=== PATIENT | male | born 1955 | race Caucasian/White ===

== ENCOUNTER 2023-06-01 10:11 | Outpatient (CLI) | payer MEDICARE, SELFPAY ==
--- NOTE | ~2023-06-01 | XR_ITS ---
Right Knee Technique: AP, lateral, and sunrise views were obtained. Clinical History: Osteoarthritis Findings: No fracture or dislocation is seen. Osseous alignment is anatomic. There is mild to moderat e degenerative change of the lateral and patellofemoral compartment. There is minimal degenerative ch elizabeth of the medial compartment.. Soft tissues are unremarkable. No joint effusion is seen. Impression: Tricompartmental osteoarthritis, as detailed above. Reviewed, dictated and finalized at location M. Impression: Tricompartmental osteoarthritis, as detailed above.
== END 2023-06-01 10:12 | disposition home or self-care (01) ==
LOC: ANHIMG 10:15
PROVIDERS: PCP Family Medicine; Visit Provider Orthopaedic Surgery
DX: M17.11 Unilateral primary osteoarthritis, right knee (principal); S83.209A Unspecified tear of unspecified meniscus, current injury, unspecified knee, initial encounter; X58.XXXA Exposure to other specified factors, initial encounter
CPT/HCPCS: 73564

== ENCOUNTER 2025-01-21 11:36 | Outpatient (CLI) | payer MEDICARE, SELFPAY ==
--- OUTSIDE RECORDS SUMMARY | 2025-01-21 11:39 | XMS_ITS | Continuity of Care Document ---
Author Name [facility] Organization [facility] Care Team Providers Care Pocket Builder Name Role Phone [facility] Unavailable Unavailable Problems Combined list of problems from Department of Defense and [facility] Affairs facilities. It does not include entries that were removed or entered in error. Problem Status Onset Date Problem Type Date of Resolution Comments Source AF - Paroxysmal atrial fibrillation Active Condition Feb 24, 2024 Entered By: KAYLEY HARTLEY Comment: status post ARACELI procedure [facility] Anticoagulant control - finding Active Condition [facility] Benign essential hypertension Active Condition [facility] CAD - Coronary Artery Disease ([facility] [id number]) Active Condition Apr 15, 2020 Entered By: KAYLEY HARTLEY Comment: stress test showed abnl perfusion ant ischemia 03/2018 [facility] Chronic deep venous thrombosis of lower extremity Active Condition Dec 13 016 Entered By: KAYLEY HARTLEY Comment: recurrent DVT with PE x 2 [facility] Chronic neuropathy with no known cause or association Active Condition Dec 14, 2015 Entered By: KAYLEY HARTLEY Comment: dx 2005 [facility] COPD - Chronic Obstructive Pulmonary Disease (SCT 60086292) Active Condition [facility] CVA - Cerebrovascular accident Active Condition Dec 15, 2021 Entered By: KAYLEY HARTLEY Comment: affected visionApr 2021 Entered By: KAYLEY HARTLEY Comment: visual field cutFeb 2022 Entered By: KAYLEY HARTLEY Comment: most recent 09/2022 [facility] Daily headache Active Condition [facility] Diabetes mellitus type 2 without retinopathy Active Condition [facility] Falls Active Condition Dec 13 16 Entered By: KAYLEY HARTLEY Comment: recurrent falls /syncope [facility] Gastro-esophageal reflux Active Condition [facility] HLD - Hyperlipidemia Active Condition [facility] Insomnia Active Condition Dec 13 Entered By: KAYLEY HARTLEY Comment: pt works rotating shifts [facility] Knee pain Active Condition Dec 13 Entered By: KAYLEY HARTLEY Comment: 2013 dr Cordero 2017 Entered By: KAYLEY HARTLEY Comment: status post tkr left knee. right knee arthrsocopy. [facility] Low back pain Active Condition Dec Entered By: KAYLEY HARTLEY Comment: status post LESI dr Monsalve [facility] Obesity Active Condition [facility] Parkinsonism Active Condition [facility] Permanent cardiac pacemaker Active Condition [facility] Primary impotence Active Condition [facility] Renal stone Active Condition [facility] Sleep apnea syndrome Active Condition Dec 14, 2015 Entered By: KAYLEY HARTLEY Comment: dx 2013 on cpap [facility] Therapeutic drug effect (SNOMED CT [id number]) Active Condition [facility] Thyroid nodule Active Condition [facility] Diagnosis: ICD-10-CM Z01.818 Encounter for other preprocedural examination Active Diagnosis [facility] Diagnosis: ICD-10-CM Z12.11 Encounter for screening for malignant neoplasm of colon Active Diagnosis [facility] Diagnosis: ICD-10-CM Z51.81 Encounter for therapeutic drug level monitoring Active Diagnosis [facility] Diagnosis: ICD-10-CM R19.5 Other fecal abnormalities Active Diagnosis [facility] Medications Combined list of outpatient medications from Department of Defense and Veterans Affairs facilities.Medications provided include 1) outpatient medications from the last 15 months, and 2) patient-reported medications. Medication Details Route Status Patient Instructions Prescription Expires Prescription Number Last Dispense Date Ordering Provider Order Date Order Qty Source AMITRIPTYLI NE HCL 50MG TAB TAKE TWO TABLETS BY MOUTH AT BEDTIME ORAL ACTIVE 04/18/2025 [id number] KAYLEY HARTLEY 2023 180 [facility] VolpitISIO N AMITRIPTYLI NE HCL 50MG TAB TAKE TWO TABLETS BY MOUTH AT BEDTIME [facility] [id number] [facility] [address] [facility] ASPIRIN 81MG TAB,EC TAKE ONE TABLET BY MOUTH ONCE A DAY ORAL ACTIVE JANES MARION 2023 [facility] ATORVASTATI N CA 80MG TAB TAKE ONE-HALF TABLET BY MOUTH EVERY EVENING FOR HIGH CHOLESTE ROL ORAL ACTIVE 02/06/2025 [id number] [facility] KAYLEY 2023 45 [facility] CALCIUM CITRATE 315MG/VITAM IN D 200UNT TAB TAKE ONE TABLET BY MOUTH EVERY MORNING ORAL ACTIVE KAYLEY HARTLEY 2015 [facility] CARBIDOPA 25MG/LEVODO PA 100MG TAB,SA TAKE ONE TABLET BY MOUTH 6 TIMES A DAY ORAL ACTIVE [facility] KAYLEY 2017 [facility] FLUTICASONE PROPIONATE 50MCG/SPRAY SOLN,NASAL, 16GM INSTILL 1 SPRAY IN EACH NOSTRIL ONCE A DAY NASAL ACTIVE [facility] KAYLEY 2017 [facility] METFORMIN HCL 1000MG TAB TAKE ONE-HALF TABLET BY MOUTH TWICE A DAY WITH MEALS FOR BLOOD SUGAR CONTROL. TAKE WITH FOOD. AVOID ALCOHOL. DISCONTI NUE BEFORE GETTING XRAY DYE. ORAL ACTIVE 11/04/2025 [id number] [facility] KAYLEY 2024 90 [facility] METFORMIN HCL 1000MG TAB TAKE ONE-HALF TABLET BY MOUTH TWICE A DAY WITH MEALS FOR BLOOD SUGAR CONTROL. TAKE WITH FOOD. AVOID ALCOHOL. DISCONTI NUE BEFORE GETTING XRAY DYE. [facility] 02/06/2025 [id number] [facility] 2023 90 [facility] METFORMIN HCL 1000MG TAB TAKE ONE-HALF TABLET BY MOUTH TWICE A DAY WITH MEALS FOR BLOOD SUGAR CONTROL. TAKE WITH FOOD. AVOID ALCOHOL. DISCONTI NUE BEFORE GETTING XRAY DYE. ORAL DISCONT INUED 01/03/2024 [id number] KAYLEY HARTLEY [address] [facility] NYSTATIN [id number] L SUSP,ORAL TAKE 10 ML SWISH and SWALLOW THREE TIMES A DAY FOR INFECTIO N. SHAKE WELL BEFORE USING. ORAL ACTIVE 08/14/2025 [id number] KAYLEY HARTLEY 2023 960 [facility] NYSTATIN [id number] L SUSP,ORAL TAKE 10 ML SWISH and SWALLOW THREE TIMES A DAY FOR INFECTIO N. SHAKE WELL BEFORE USING. ORAL 08/05/2024 [id number] KAYLEY HARTLEY [address] [facility] PANTOPRAZOL E NA 40MG TAB,EC TAKE ONE TABLET BY MOUTH TWICE A DAY TO LOWER STOMACH ACID - TAKE 30 MINUTES BEFORE MEAL(S) ORAL SUSPEND ED 04/20/2025 [id number] KAYLEY HARTLEY 2023 180 [facility] PANTOPRAZOL E NA 40MG TAB,EC TAKE ONE TABLET BY MOUTH TWICE A DAY TO LOWER STOMACH ACID - TAKE 30 MINUTES BEFORE MEAL(S) ORAL DISCONT INUED 04/18/2025 [id number] KAYLEY HARTLEY 2023 180 [facility] PANTOPRAZOL E NA 40MG TAB,EC TAKE ONE TABLET BY MOUTH TWICE A DAY TO LOWER STOMACH ACID - TAKE 30 MINUTES BEFORE MEAL(S) ORAL DISCONT INUED 04/23/2024 [id number] 4 KAYLEY HARTLEY [address] [facility] PILOCARPINE HCL 5MG TAB TAKE ONE TABLET BY MOUTH THREE TIMES A DAY FOR DRY MOUTH ORAL ACTIVE 04/22/2025 [id number] KAYLEY HARTLEY [address] [facility] PILOCARPINE HCL 5MG TAB TAKE ONE TABLET BY MOUTH THREE TIMES A DAY FOR DRY MOUTH ORAL DISCONT INUED 04/23/2024 [id number] [place], ROSA BUTLER [address] [facility] PREGABALIN 150MG CAP,ORAL TAKE 2 CAPSULES BY MOUTH EVERY MORNING FOR 90 DAYS AND TAKE 1 CAPSULE BY MOUTH AT BEDTIME FOR 90 DAYS ORAL ACTIVE KAYLEY HARTLEY [address] [facility] SODIUM CHLORIDE 0.65% (NASAL) SOLN,SPRAY, NASAL USE INTO NOSTRIL( S) EVERY 4 HOURS NEEDED NASAL ACTIVE KAYLEY HARTLEY 2017 [facility] SOTALOL HCL 120MG TAB TAKE ONE TABLET BY MOUTH TWICE A DAY ORAL ACTIVE KAYLEY HARTLEY [address] [facility] TOPIRAMATE 50MG TAB TAKE ONE TABLET BY MOUTH TWICE A DAY ORAL ACTIVE 01/14/2026 [id number] 5 [facility] [address] [facility] TOPIRAMATE 50MG TAB TAKE ONE TABLET BY MOUTH TWICE A DAY ORAL DISCONT INUED 02/06/2025 [id number] [facility] 2023 180 [facility] TOPIRAMATE 50MG TAB TAKE ONE TABLET BY MOUTH TWICE A DAY ORAL DISCONT INUED 01/03/2024 [id number] [facility] [address] [facility] TRAZODONE HCL 100MG TAB TAKE ONE TABLET BY MOUTH AT BEDTIME ORAL ACTIVE KAYLEY HARTLEY [address] [facility] VENLAFAXINE HCL 37.5MG 24HR CAP,SA TAKE TWO CAPSULES BY MOUTH ONCE A DAY FOR MOOD. TAKE WITH FOOD. ORAL ACTIVE 04/18/2025 [id number] SIMKAYLEY COTO 2023 180 [facility] VENLAFAXINE HCL 37.5MG 24HR CAP,SA TAKE TWO CAPSULES BY MOUTH ONCE A DAY FOR MOOD. TAKE WITH FOOD. ORAL DISCONT INUED 2024 [id number] 4 KAYLEY HARTLEY [address] [facility] Allergies, Adverse Reactions, Alerts Combined list of allergies from [facility] and [facility] facilities. It does not include entries that were removed or entered in error. Substance Category Reaction Severity Reaction type Status Date Reported Comments Source CYMBALTA Propensity to adverse reactions to drug (finding) Abdominal pain active 6 [facility] HYDROCODONE Propensity to adverse reactions to drug (finding) Nausea and vomiting active 6 [facility] OXYCODONE Propensity to adverse reactions to drug (finding) Finding of vomiting active 6 [facility] PHENTOLAMINE Propensity to adverse reactions to drug (finding) Elevated blood pressure active 1 [facility] SAVELLA Propensity to adverse reactions to drug (finding) Sweating active 6 [facility] TRAMADOL Propensity to adverse reactions to drug (finding) Tachyarrhyt hmia active 6 [facility] Immunizations Combined list of available immunizations from the Department of [facility] and [facility] facilities. Immunization Series Date Given Administered By Site Reaction Lot Number CVX Code Drug Power Machine Operator Status Comments Source INFLUENZA VACCINE, QUADRIVALENT, ADJUVANTED [address] [facility] ZOSTER RECOMBINANT [address] [facility] INFLUENZA VACCINE, QUADRIVALENT, ADJUVANTED [address] [facility] ZOSTER RECOMBINANT 1 [address] [facility] COVID-19 (PFIZER), MRNA, LNP-S, PF, 30 MCG/0.3 ML DOSE 2 2020 208 complet ed PFR; [id number]; [address] [place] [address] COVID-19 (PFIZER), MRNA, LNP-S, PF, 30 MCG/0.3 ML DOSE 1 2020 208 complet ed PFR; [id number]; [address] [place] [address] INFLUENZA, UNSPECIFIED FORMULATION 2019 88 complet ed [facility] INFLUENZA, HIGH DOSE SEASONAL 3 2018 135 complet ed HISTORICA L INFORMATI ON - FROM OTHER REGISTRY, [facility] INFLUENZA, UNSPECIFIED FORMULATION 2018 88 complet ed [facility] PNEUMOCOCCAL CONJUGATE PCV [address] [facility] INFLUENZA, UNSPECIFIED FORMULATION 2017 88 complet ed [facility] PNEUMOCOCCAL CONJUGATE PCV 13 1 2017 133 complet ed HISTORICA L INFORMATI ON - FROM OTHER REGISTRY, [facility] INFLUENZA, INJECTABLE, QUADRIVALENT, PRESERVATIVE FREE 2 2016 150 complet ed HISTORICA L INFORMATI ON - FROM OTHER REGISTRY, [facility] INFLUENZA, UNSPECIFIED FORMULATION 2016 88 complet ed [facility] PNEUMOCOCCAL POLYSACCHARID E PPV23 [address] [facility] ZOSTER LIVE [address] [facility] INFLUENZA, UNSPECIFIED FORMULATION 2015 88 complet ed [facility] INFLUENZA, UNSPECIFIED FORMULATION 2015 88 complet ed [facility] TDAP [address] [facility] INFLUENZA, UNSPECIFIED FORMULATION 2014 88 complet ed [facility] INFLUENZA, SPLIT (INCL. PURIFIED SURFACE ANTIGEN) 1 2012 15 complet ed HISTORICA L INFORMATI ON - FROM OTHER REGISTRY, [facility] Results Combined list of recent chemistry, hematology and other laboratory results from Department of Defense and Veterans Affairs, ranging from 15 months to all on record, depending upon the facility. Order Name Results Value Reference Range Date Interpretation Specimen Comments Source GLUCOSE, BLOOD-po ct (STL) GLUCOSE [MASS/VOLU ME] IN BLOOD BY AUTOMATED TEST STRIP 138 mg/dL 72 - 99 10/04 H Specimen Type: BLOOD Comment: Test Performed by: [id number] Meter #: [id number] Ordering Provider: Arely HARTLEY Report Released Date/Time: Oct 04, 2023 12:10 PM Reporting Lab: [facility] [address] [facility] [phone] Performing Lab: [id number] [place] [address] OCCULT BLOOD FIT X1 SCREEN HEMOGLOBIN .GASTROINT ESTINAL.LO WER [PRESENCE] IN STOOL BY IMMUNOASSA Y POSITIVE 07/08 [facility] Specimen Type: FECES No comment entered. Ordering Provider: Arely HARTLEY Report Released Date/Time: 2023 03:37 PM Reporting Lab: [address] [address] Performing Lab: [place] [id number] [facility] CBC LEUKOCYTES [#/VOLUME] IN BLOOD BY AUTOMATED COUNT 6.4 10*3/uL 3.6 - 11.2 07/04 Specimen Type: BLOOD No comment entered. Ordering Provider: Arely HARTLEY Report Released Date/Time: 2023 03:11 PM Reporting Lab: [facility] [place] [address] Performing Lab: [facility] [facility] CBC ERYTHROCYT ES [#/VOLUME] IN BLOOD BY AUTOMATED COUNT 4.42 10*6/uL 4.10 - 5.70 07/04 Specimen Type: BLOOD No comment entered. Ordering Provider: Arely HARTLEY Report Released Date/Time: 2023 03:11 PM Reporting Lab: [facility] [place] [address] Performing Lab: [facility] [facility] CBC HEMOGLOBIN [MASS/VOLU ME] IN BLOOD 14.3 g/dL 13.1 - 16.8 07/04 Specimen Type: BLOOD No comment entered. Ordering Provider: Arely HARTLEY Report Released Date/Time: 2023 03:11 PM Reporting Lab: [facility] [place] [address] Performing Lab: [facility] [facility] CBC HEMATOCRIT [VOLUME FRACTION] OF BLOOD 43.1 38.2 - 48.4 07/04 Specimen Type: BLOOD No comment entered. Ordering Provider: Arely HARTLEY Report Released Date/Time: 2023 03:11 PM Reporting Lab: [facility] [place] [address] Performing Lab: [facility] [facility] CBC MCV [ENTITIC VOLUME] BY AUTOMATED COUNT 97.5 fL 80.0 - 100.0 07/04 Specimen Type: BLOOD No comment entered. Ordering Provider: Arely HARTLEY Report Released Date/Time: 2023 03:11 PM Reporting Lab: [facility] [place] [address] Performing Lab: [facility] [facility] CBC MCH [ENTITIC MASS] BY AUTOMATED COUNT 32.4 pg 27.0 - 34.0 07/04 Specimen Type: BLOOD No comment entered. Ordering Provider: Arely HARTLEY Report Released Date/Time: 2023 03:11 PM Reporting Lab: [facility] [place] [address] Performing Lab: [facility] [facility] CBC MCHC [MASS/VOLU ME] BY AUTOMATED COUNT 33.2 g/dL 33.0 - 36.0 07/04 Specimen Type: BLOOD No comment entered. Ordering Provider: Arely HARTLEY Report Released Date/Time: 2023 03:11 PM Reporting Lab: [facility] [place] [address] Performing Lab: [facility] [place] [id number] [facility] CBC PLATELETS [#/VOLUME] IN BLOOD BY AUTOMATED COUNT 186 10*3/uL 150 - 400 07/04 Specimen Type: BLOOD No comment entered. Ordering Provider: Arely HARTLEY Report Released Date/Time: 2023 03:11 PM Reporting Lab: [facility] [place] [address] Performing Lab: [facility] [facility] CBC PLATELET MEAN VOLUME [ENTITIC VOLUME] IN BLOOD BY AUTOMATED COUNT 10.9 fL 7.5 - 11.2 07/04 Specimen Type: BLOOD No comment entered. Ordering Provider: Arely HARTLEY Report Released Date/Time: 2023 03:11 PM Reporting Lab: [facility] [place] [address] Performing Lab: [facility] [facility] CBC ERYTHROCYT E DISTRIBUTI ON WIDTH [RATIO] BY AUTOMATED COUNT 14.2 11.8 - 15.1 07/04 Specimen Type: BLOOD No comment entered. Ordering Provider: Arely HARTLEY Report Released Date/Time: 2023 03:11 PM Reporting Lab: [facility] [place] [address] Performing Lab: [facility] [facility] CBC LYMPHOCYTE S/100 LEUKOCYTES IN BLOOD BY AUTOMATED COUNT 18 07/04 Specimen Type: BLOOD No comment entered. Ordering Provider: Arely HARTLEY Report Released Date/Time: 2023 03:11 PM Reporting Lab: [facility] [place] [id number] Performing Lab: [facility] [facility] CBC MONOCYTES/ 100 LEUKOCYTES IN BLOOD BY AUTOMATED COUNT 10 07/04 Specimen Type: BLOOD No comment entered. Ordering Provider: Arely HARTLEY Report Released Date/Time: 2023 03:11 PM Reporting Lab: [facility] [place] [address] Performing Lab: [facility] [facility] CBC NEUTROPHIL S/100 LEUKOCYTES IN BLOOD BY AUTOMATED COUNT 68 07/04 Specimen Type: BLOOD No comment entered. Ordering Provider: Arely HARTLEY Report Released Date/Time: 2023 03:11 PM Reporting Lab: [facility] [place] [address] Performing Lab: [facility] [facility] CBC EOSINOPHIL S/100 LEUKOCYTES IN BLOOD BY AUTOMATED COUNT 3 07/04 Specimen Type: BLOOD No comment entered. Ordering Provider: Arely HARTLEY Report Released Date/Time: 2023 03:11 PM Reporting Lab: [facility] [place] [address] Performing Lab: [facility] [facility] CBC BASOPHILS/ 100 LEUKOCYTES IN BLOOD BY AUTOMATED COUNT 1 07/04 Specimen Type: BLOOD No comment entered. Ordering Provider: Arely HARTLEY Report Released Date/Time: 2023 03:11 PM Reporting Lab: [facility] [place] [address] Performing Lab: [facility] [facility] CBC LYMPHOCYTE S [#/VOLUME] IN BLOOD BY AUTOMATED COUNT 1.15 10*3/uL 0.77 - 4.50 07/04 Specimen Type: BLOOD No comment entered. Ordering Provider: Arely HARTLEY Report Released Date/Time: 2023 03:11 PM Reporting Lab: [facility] [place] [address] Performing Lab: [facility] [facility] CBC MONOCYTES [#/VOLUME] IN BLOOD BY AUTOMATED COUNT 0.65 10*3/uL 0.19 - 0.80 07/04 Specimen Type: BLOOD No comment entered. Ordering Provider: Arely HARTLEY Report Released Date/Time: 2023 03:11 PM Reporting Lab: [facility] [place] [address] Performing Lab: [facility] CB CBC NEUTROPHIL S [#/VOLUME] IN BLOOD BY AUTOMATED COUNT 4.34 10*3/uL 2.10 - 8.00 07/04 Specimen Type: BLOOD No comment entered. Ordering Provider: Arely HARTLEY Report Released Date/Time: 2023 03:11 PM Reporting Lab: [facility] [place] [address] Performing Lab: [facility] [facility] CBC EOSINOPHIL S [#/VOLUME] IN BLOOD BY AUTOMATED COUNT 0.19 10*3/uL 0.00 - 0.60 07/04 Specimen Type: BLOOD No comment entered. Ordering Provider: Arely HARTLEY Report Released Date/Time: 2023 03:11 PM Reporting Lab: [facility] [place] [address] Performing Lab: [facility] [facility] CBC BASOPHILS [#/VOLUME] IN BLOOD BY AUTOMATED COUNT 0.05 10*3/uL 0.00 - 0.20 07/04 Specimen Type: BLOOD No comment entered. Ordering Provider: Arely HARTLEY Report Released Date/Time: 2023 03:11 PM Reporting Lab: [facility] [phone] Performing Lab: [facility] [phone] [place] [address] [facility] COMPREHE NSIVE METABOLI C PANEL CREATININE [MASS/VOLU ME] IN SERUM OR PLASMA 1.04 mg/dL 0.7 - 1.3 07/04 Specimen Type: PLASMA Comment: No hemolysis noted. Ordering Provider: Arely HARTLEY Report Released Date/Time: 2023 03:11 PM Reporting Lab: [place] [address] Performing Lab: [facility] [address] [place] [address] [phone] [place] [address] [facility]OC COMPREHE NSIVE METABOLI C PANEL UREA NITROGEN [MASS/VOLU ME] IN SERUM OR PLASMA 14.6 mg/dL 9.0 - 25.0 07/04 Specimen Type: PLASMA Comment: No hemolysis noted. Ordering Provider: Arely HARTLEY Report Released Date/Time: 2023 03:11 PM Reporting Lab: [facility] [address] [place] [phone] Performing Lab: [address] [phone] [facility] COMPREHE NSIVE METABOLI C PANEL GLUCOSE [MASS/VOLU ME] IN SERUM OR PLASMA 150 mg/dL 72 - 99 07/04 H Specimen Type: PLASMA Comment: No hemolysis noted. Ordering Provider: Arely HARTLEY Report Released Date/Time: 2023 03:11 PM Reporting Lab: [address] [address] Performing Lab: [facility] [address] [facility] [address] [facility] COMPREHE NSIVE METABOLI C PANEL SODIUM [MOLES/VOL UME] IN SERUM OR PLASMA 142 meq/L 136 - 145 07/04 Specimen Type: PLASMA Comment: No hemolysis noted. Ordering Provider: Arely HARTLEY Report Released Date/Time: 2023 03:11 PM Reporting Lab: [facility] [address] [facility] [address] Performing Lab: [facility] [address] [facility] [address] [facility] COMPREHE NSIVE METABOLI C PANEL POTASSIUM [MOLES/VOL UME] IN SERUM OR PLASMA 4.6 meq/L 3.5 - 5 07/04 Specimen Type: PLASMA Comment: No hemolysis noted. Ordering Provider: Arely HARTLEY Report Released Date/Time: 2023 03:11 PM Reporting Lab: [facility] [address] [place] [phone] Performing Lab: [address] [address] [facility] COMPREHE NSIVE METABOLI C PANEL CHLORIDE [MOLES/VOL UME] IN SERUM OR PLASMA 104 meq/L 98 - 107 07/04 Specimen Type: PLASMA Comment: No hemolysis noted. Ordering Provider: Arely HARTLEY Report Released Date/Time: 2023 03:11 PM Reporting Lab: [facility] [address] [place] [phone] Performing Lab: [facility] [address] [place] [phone] [facility] COMPREHE NSIVE METABOLI C PANEL CARBON DIOXIDE, TOTAL [MOLES/VOL UME] IN SERUM OR PLASMA 33 meq/L 22 - 31 07/04 H Specimen Type: PLASMA Comment: No hemolysis noted. Ordering Provider: Arely HARTLEY Report Released Date/Time: 2023 03:11 PM Reporting Lab: [facility] [address] [facility] [address] Performing Lab: [facility] [address] [facility] [address] [facility] COMPREHE NSIVE METABOLI C PANEL CALCIUM [MASS/VOLU ME] IN SERUM OR PLASMA 9.8 mg/dL 8.4 - 10.4 07/04 Specimen Type: PLASMA Comment: No hemolysis noted. Ordering Provider: Arely HARTLEY Report Released Date/Time: 2023 03:11 PM Reporting Lab: [place] [id number] [facility] [id number] Performing Lab: [address] [address] [facility] COMPREHE NSIVE METABOLI C PANEL PROTEIN [MASS/VOLU ME] IN SERUM OR PLASMA 7.1 g/dL 6 - 8.6 07/04 Specimen Type: PLASMA Comment: No hemolysis noted. Ordering Provider: Arely HARTLEY Report Released Date/Time: 2023 03:11 PM Reporting Lab: [address] [address] Performing Lab: [place] [address] [facility] [phone] [facility] COMPREHE NSIVE METABOLI C PANEL ALBUMIN [MASS/VOLU ME] IN SERUM OR PLASMA 4.3 g/dL 3.4 - 5 07/04 Specimen Type: PLASMA Comment: No hemolysis noted. Ordering Provider: Arely HARTLEY Report Released Date/Time: 2023 03:11 PM Reporting Lab: [facility] [address] [place] [phone] Performing Lab: [address] [phone] [facility] COMPREHE NSIVE METABOLI C PANEL BILIRUBIN. TOTAL [MASS/VOLU ME] IN SERUM OR PLASMA 0.7 mg/dL 0.2 - 1.2 07/04 Specimen Type: PLASMA Comment: No hemolysis noted. Ordering Provider: Arely HARTLEY Report Released Date/Time: 2023 03:11 PM Reporting Lab: [facility] [address] [place] [phone] Performing Lab: [facility] [address] [place] [phone] [facility] COMPREHE NSIVE METABOLI C PANEL ALKALINE PHOSPHATAS E [ENZYMATIC ACTIVITY/V OLUME] IN SERUM OR PLASMA 61 U/L 40 - 150 07/04 Specimen Type: PLASMA Comment: No hemolysis noted. Ordering Provider: Arely HARTLEY Report Released Date/Time: 2023 03:11 PM Reporting Lab: [facility] [address] [place] [phone] Performing Lab: [address] [phone] [facility] COMPREHE NSIVE METABOLI C PANEL ASPARTATE AMINOTRANS FERASE [ENZYMATIC ACTIVITY/V OLUME] IN SERUM OR PLASMA 22 U/L 5 - 34 07/04 Specimen Type: PLASMA Comment: No hemolysis noted. Ordering Provider: Arely HARTLEY Report Released Date/Time: 2023 03:11 PM Reporting Lab: [facility] [address] [place] [phone] Performing Lab: [facility] [address] [place] [phone] [facility] COMPREHE NSIVE METABOLI C PANEL ALANINE AMINOTRANS FERASE [ENZYMATIC ACTIVITY/V OLUME] IN SERUM OR PLASMA 36 U/L 8 - 40 07/04 Specimen Type: PLASMA Comment: No hemolysis noted. Ordering Provider: Arely HARTLEY Report Released Date/Time: 2023 03:11 PM Reporting Lab: [facility] [address] [place] [phone] Performing Lab: [facility] [address] [place] [phone] [facility] COMPREHE NSIVE METABOLI C PANEL GLOMERULAR FILTRATION RATE/1.73 SQ M.PREDICTE D [VOLUME RATE/AREA] IN SERUM, PLASMA OR BLOOD BY CREATININE -BASED FORMULA (CKD-EPI 2020) 77.2 60 07/04 Specimen Type: PLASMA Comment: No hemolysis noted. Ordering Provider: Arely HARTLEY Report Released Date/Time: 2023 03:11 PM Reporting Lab: [place] [address] Performing Lab: [address] [facility] HGA1C HEMOGLOBIN A1C/HEMOGL OBIN.TOTAL IN BLOOD 6.8 4.0 - 6.0 07/04 H Specimen Type: BLOOD No comment entered. Ordering Provider: Arely HARTLEY Report Released Date/Time: 2023 03:11 PM Reporting Lab: [place] [address] Performing Lab: [address] [facility] PROST. SPECIFIC AG.(PB-S TL) PROSTATE SPECIFIC AG [MASS/VOLU ME] IN SERUM OR PLASMA 0.720 ng/mL 0 - 4 07/04 Specimen Type: SERUM Comment: The listed sex of this patient may not be a typical indication for this test. Therefore, reference ranges or interpretiv e criteria listed may not be valid. Clinical correlation suggested. Ordering Provider: Arely HARTLEY Report Released Date/Time: 2023 03:11 PM Reporting Lab: [place] [address] Performing Lab: [address] [facility] TSH (MA-PB-S TL) THYROTROPI N [UNITS/VOL UME] IN SERUM OR PLASMA 2.226 u[IU]/mL 0.47 - 5 07/04 Specimen Type: SERUM Comment: The listed sex of this patient may not be a typical indication for this test. Therefore, reference ra [id number]|2025-01-21 11:40:00|2025-01-21 11:39:00|XMS_ITS|PERRY MONTES DE OCA|External Medical Summaries|[id number]|" Referral Summary Created on: January 21, 2025 Rosa Escalante : 1955 Sex: Male Author Organization [facility] Address [address] [place] [address] Care Team Providers Care Pocket Builder Name Role Phone Tuan Bolden MD Unavailable [phone] Kayley Hartley MD Unavailable [phone] Veronica Swanson MD Unavailable [phone] Lakeisha Agustin MD Unavailable Jesús Mo DMD Unavailable Samuel Moura MD Unavailable [phone] Luh Costa MD Unavailable Carlos Espinal MD Primary Care Provider [phone] Tyra Flores MD PhD Unavailable [phone] Encounters Date Type Department Care Team Description 01/20/2025 10:45 AM CDT Office Visit [facility] Neuro Sleep [address] [facility] 6th [address] [place] [phone] Luda Hilton MD LUCI (obstructive sleep apnea) 12/16/2024 Telephone [facility] Movement Disorders [address] [place] [address] [address] [place] [phone] Eva Arias, RN 12/16/2024 2:00 PM CDT Office Visit [facility] Primary Care at [address] [phone] Carlos Espinal MD Hypertension, unspecified type (Primary Dx); Multiple-type hyperlipidemia; Presence of Amulet left atrial appendage closure device; Type 2 diabetes mellitus without complication, without long-term current use of insulin (HCC); Type 2 diabetes mellitus with diabetic neuropathy, without long-term current use of insulin (HCC); Nasal turbinate hypertrophy; Chronic maxillary sinusitis 12/15/2024 Telephone [facility] Movement Disorders [address] [place] [phone] Eva Arias, MILI 12/01/2024 Results Follow-Up [facility] Convenient Care at [address] [phone] Tammi Leon NP 12/01/2024 11:00 AM CDT Ancillary Procedure [facility] Imaging at [address] [phone] Acute cough; Aspiration into airway, initial encounter 11/30/2024 Results Follow-Up [facility] Convenient Care at [address] [phone] Tammi Leon, DIESEL TRAILER MECHANIC 11/30/2024 2:54 PM CDT - 11/30/2024 11:59 PM CDT Hospital Encounter [address] [address] Acute cough Discharge Disposition: Discharge to home or self care 11/30/2024 2:15 PM CDT Office Visit [facility] Convenient Care at [address] [phone] Tammi Leon NP Acute cough (Primary Dx); Aspiration into airway, initial encounter 11/24/2024 11:00 AM CDT Clinical Support [facility] Movement Disorders [address] [place] [phone] 11/24/2024 9:30 AM CDT Office Visit [facility] Movement Disorders [address] [place] [phone] Lady Kumar NP Parkinson's disease without dyskinesia or fluctuating manifestations (HCC) (Primary Dx); Cognitive change; LUCI (obstructive sleep apnea) 11/18/2024 1:30 PM CDT Office Visit [facility] Primary Care at [address] [phone] Carlos Espinal MD Hospital discharge follow-up (Primary Dx); Atrial fibrillation with RVR (HCC); High risk medications (not anticoagulants) long-term use; Presence of Amulet left atrial appendage closure device; Paresis (HCC); Hypertension associated with diabetes (HCC) 11/12/2024 THELMA IP Outreach [facility] Accountable Care Organization [address] [place] [phone] Kavita Hickman MA 11/09/2024 12:17 PM [employer]LECTION SYSTEM OPERATOR - 11/11/2024 4:39 PM [employer]LL G[employer] COLLECTION SYSTEM OPERATOR Hospital Encounter [address] [address] Shashi Sylvester MD Rudomiotov, Olga, MD Perez Porcel, Jose Daniel, MD Shortness of breath (Primary Dx); Atrial fibrillation, unspecified type (HCC); Weakness Discharge Disposition: Discharge to home, home health skilled care 11/08/2024 5:48 PM [employer] G[employer] COLLECTION SYSTEM OPERATOR - 11/08/2024 7:43 PM [employer]LL G[employer] COLLECTION SYSTEM OPERATOR Emergency [facility] Emergency Department [address] [place] [address] Deyvi Cade MD Chronic atrial fibrillation with RVR (HCC) (Primary Dx) Discharge Disposition: Discharge to home or self care from Last 3 Months Allergies Active Allergy Reactions Criticality Noted Date Comments Codeine Stomach upset Low Duloxetine Other (See comments),Vomiting High Reaction: ARRHYTHMIA, Reaction: abdominal pain, vomiting, , Hydrocodone-Acetaminoph en Nausea & Vomiting Low Milnacipran Nausea & Vomiting Low SAVELLA ABDOMINAL PAIN, extreme sweating, Oxycodone Other (See comments) Low ABDOMINAL PAIN, Phentolamine Unknown Low 03/18/2021 Tramadol Nausea & Vomiting Low Rapid heart beat Medications venlafaxine (EFFEXOR) 37.5 mg tablet Take 1 tablet (37.5 mg total) by mouth 2 (two) times a day Active multivitamin capsule Take 1 capsule by mouth daily Active melatonin 10 mg tablet Take 1 tablet (10 mg total) by mouth nightly Active amitriptyline (ELAVIL) 50 mg tablet Take 2 tablets (100 mg total) by mouth nightly Active metFORMIN (GLUCOPHAGE) 1,000 mg tablet Take 0.5 tablets (500 mg total) by mouth 2 (two) times a day with meals Active pantoprazole DR (PROTONIX) 40 mg EC tablet Take 1 tablet (40 mg total) by mouth 2 (two) times a day Active topiramate (TOPAMAX) 50 mg tablet Take 1 tablet (50 mg total) by mouth 2 (two) times a day Active calcium carbonate-kayleen min D3 1500 mg (600 mg elemental) -200 units per tablet Take 1 tablet by mouth 2 (two) times a day Active cholecalcifero l (VITAMIN D-3) 1,000 unit Take 1 tablet/capsule (1,000 Units total) by mouth daily Active acetaminophen (TYLENOL) 500 mg tablet Take 2 tablets (1,000 mg total) by mouth 3 (three) times a day as needed for pain Do not exceed 3000mg in 24 hours Active pilocarpine (SALAGEN) 5 mg tablet Take 1 tablet (5 mg total) by mouth 3 (three) times a day 04/19/20 23 Active sotaloL (BETAPACE) 120 mg tablet Take 1 tablet (120 mg total) by mouth 2 (two) times a day Active docusate sodium (DOK) 100 mg tablet Take 1 tablet (100 mg total) by mouth 2 (two) times a day Active aspirin 81 mg chewable tablet Take 1 tablet (81 mg total) by mouth daily Active EPINEPHrine 0.3 mg/0.3 mL auto-injection syringe Inject 0.3 mL (0.3 mg total) into the muscle as instructed as needed for anaphylaxis Call 911 after use. 1 each 07/29/20 24 Active atorvastatin (LIPITOR) 40 mg tablet TAKE 1 TABLET BY MOUTH EVERY DAY AT NIGHT 90 tablet 3 09/24/19 25 Active donepeziL (ARICEPT) 5 mg tablet TAKE 1 TABLET BY MOUTH EVERY DAY AT NIGHT 90 tablet 3 09/24/19 25 Active dilTIAZem XR (CARDIZEM CD,DILACOR XR) 180 mg 24 hr capsule Take 1 capsule (180 mg total) by mouth daily 30 capsule 10/11/19 25 Active NYSTATIN ORAL Take 10 mg by mouth 3 (three) times a day Active rizatriptan (MAXALT) 10 mg tabletIndicati ons:Migraine Take 1 tablet (10 mg total) by mouth once as needed for migraine May repeat in 2 hours if unresolved. Do not exceed 30 mg in 24 hours. 9 tablet 1 10/13/19 25 026 Active psyllium 0.52 gram capsule Take 1 capsule (0.52 g total) by mouth daily Active carbidopa-levo dopa (SINEMET) 25-100 mg per tablet 2.5 tablets at 10a, 2.5 tablets at 3pm, and 2.5 tablets at 8p (4-5 hours apart) 12/16/19 25 Active fluticasone propionate (FLONASE) 50 mcg/actuation nasal spray Administer 1 spray into each nostril daily Active sodium chloride (OCEAN) 0.65 % nasal spray Administer 1 spray into each nostril as needed for congestion or rhinitis Active pregabalin (LYRICA) 150 mg capsule TAKE 2 CAPSULES BY MOUTH EVERY MORNING, THEN 1 CAPSULE BY MOUTH EVERY EVENING 270 capsule 1 12/27/19 25 Active mecobalamin (B12 ACTIVE ORAL) Take by mouth Active suvorexant 5 mg tablet Take 5-10 mg by mouth nightly as needed (as needed for insomnia) 60 tablet 5 01/21/20 25 025 Active pregabalin (LYRICA) 150 mg capsule TAKE 2 CAPSULES BY MOUTH EVERY MORNING, THEN 1 CAPSULE BY MOUTH EVERY EVENING 270 capsule 2 06/27/20 24 025 Discontinued Hospital, Clinic, or Other Facility Administered Medication Ordered Dose Route Frequency Start Date End Date Status onabotulinumtoxin A (BOTOX) injection 300 UnitsIndications:Cer vical dystonia 300 Units IM Once for Clinic-Administer ed Medication 01/28/2025 01/27/2026 Active Active Problems Problem Noted Date Diagnosed Date Leukocytosis 10/10/2024 Tricuspid regurgitation 10/10/2024 Aortic regurgitation 10/10/2024 Atrial fibrillation with RVR 10/09/2024 Cervical dystonia 06/04/2024 Assessment & Plan (10/15/2024 2:39 PM [employer] G[employer] COLLECTION SYSTEM OPERATOR): Rosa Escalante is a 69 y.o. 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 He is an appropriate candidate for botulinum injections. The risks (including but not limited to: bruising, hematoma, weakness, dysphagia, and infection, benefits, alternatives to chemodenervation were explained. A signed consent was obtained. The consenting adult understands that all general neurological issues are to be managed by the referring neurologist or physician. Plan: Get insurance approval for 300 units at next visit Botulinum A 200 U injected into the following muscles using a 1 ml dilution: 20U Levator Scapulae (left) 20U Scalenus Medius (left) 10U Splenius Capitis (left) 20U Levator Scapulae (right) 10U Splenius Capitis (right) 60U Trapezius (left) 60U Trapezius (right) Assessment & Plan (06/10/2024 8:02 AM CDT): Rosa Escalante is a 69 y.o. 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 He is an appropriate candidate for botulinum injections. The risks (including but not limited to: bruising, hematoma, weakness, dysphagia, and infection, benefits, alternatives to chemodenervation were explained. A signed consent was obtained. The consenting adult understands that all general neurological issues are to be managed by the referring neurologist or physician. Plan: Get insurance approval for 300 units at next visit - Botulinum A 200 U injected into the following muscles using a 1 ml dilution: 20U Levator Scapulae (left) 20U Scalenus Medius (left) 10U Splenius Capitis (left) 20U Levator Scapulae (right) 10U Splenius Capitis (right) 60U Trapezius (left) 60U Trapezius (right) Pharyngoesophageal dysphagia 05/09/2024 Assessment & Plan (05/09/2024 10:01 AM CDT): Modified barium swallow study Other thrombophilia 03/24/2024 Chronic maxillary sinusitis 02/27/2024 Assessment & Plan (05/15/2024 3:33 PM CDT): 05/01/24; PROCEDURE PERFORMED: Endoscopic bilateral Maxillary Antrostomy with tissue removal Stealth Image guidance utilized Avoid nose picking May blow nose gently Follow up as needed Take morning medications with water prior to testing, hold off on Metformin Continue nasal saline 3-4 times daily for at least one more month and then at least 2-3 times daily Assessment & Plan (05/09/2024 10:02 AM CDT): Avoid nose blowing for one more week Follow up as scheduled next Sunday Start sinus rinse twice daily Assessment & Plan (02/28/2024 8:38 AM CDT): Nasal saline spray (Simply saline, Little Remedies, Gautier, Phelps) 2 second sprays or 2 squeezes into each nostril while looking down over the sink, do not need to sniff in. Flonase 2 sprays into each nostril while looking down over the sink, do not sniff in or blow nose after use for at least 30 minutes up to twice daily Please avoid any nasal trauma CT sinus Centralized Scheduling: Endoscopic Left Maxillary Antrostomy with Fungal ball removal Stealth image guidance Risks and complications include anesthesia, bleeding, infection, injury to surrounding structures including brain with csf leak, eyes with vision changes, nasal mucosa, atrophic rhinitis, benign versus malignant pathology, no guarantee that sense of smell will return, need for further surgery. Personal interpretation of CT Head: Left maxillary sinus opacification, fungal debris noted, uncinate process expansion from sinus contents, septum midline, all other sinuses were clear Chronic rhinitis 02/27/2024 Assessment & Plan (02/28/2024 8:27 AM CDT): Nasal saline spray (Simply saline, Little Remedies, Gautier, Phelps) 2 second sprays or 2 squeezes into each nostril while looking down over the sink, do not need to sniff in. Flonase 2 sprays into each nostril while looking down over the sink, do not sniff in or blow nose after use for at least 30 minutes up to twice daily Please avoid any nasal trauma Presence of Amulet left atrial appendage closure device 12/04/2023 Platelets decreased 11/14/2023 Mitral regurgitation 11/02/2023 Atrial fibrillation 10/30/2023 Alteration in anticoagulation 07/16/2023 Chronic idiopathic ataxic neuropathy 07/16/2023 Overview (07/16/2023): Dec 14, 2015 Entered By: KAYLEY HARTLEY Comment: dx 2006 Arteriosclerosis of coronary artery 07/16/2023 Overview (07/16/2023): Apr 15, 2020 Entered By: KAYLEY HARTLEY Comment: stress test showed abnl perfusion ant ischemia 03/2018 Chronic deep vein thrombosis (DVT) of lower extr emity 07/16/2023 Overview (07/16/2023): Dec 14, 2015 Entered By: KAYLEY HARTLEY Comment: recurrent DVT with PE x 2 Chronic obstructive pulmonary disease 07/16/2023 Assessment & Plan (10/15/2024 8:54 PM [employer]LL G[employer] COLLECTION SYSTEM OPERATOR): Uses oxygen at night. 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 Discussed relevant follow up testing and specialty follow-up needed. Referrals placed as needed. Will have patient follow up as as scheduled with Primary Care Physician: Carlos Espinal Assessment & Plan (09/22/2022 2:13 PM [employer]LL G[employer] COLLECTION SYSTEM OPERATOR): I have reviewed the hospital record, medications, and relevant testing from Rosa Escalante's recent admission. Complications and discharge plan have been noted, reviewed. Post-discharge testing has been ordered. Awaiting [employer] CRM DEVELOPER evaluation Will want PT/OT in all likelihood as well, probably to wrap in with PD therapy MRI planned, will need to get from [facility] Also want to get liver MRI to assess mass in liver found during hospitalization Plan on overnight oximetry; in the past he has declined CPAP due to intolerance Liver mass 09/15/2022 Cerebrovascular accident (CVA), unspecified mech anism 09/13/2022 Assessment & Plan (09/13/2022 7:00 PM L[employer]LL GAS COLLECTION SYSTEM OPERATOR): Patient with multiple risk factors including AFib, obesity, prior stroke, and diabetes,who presents with new onset left-sided facial droop and slurred speech, onset was this morning, out of window for tPA administration. CT head was negative for bleed, or acute findings. LDL is 34, and A1C 5.7, both at goal, but triglycerides are elevated at 366. Per tele stroke recommendations, will hold Eliquis for 4-14 days. Start baby aspirin, change simvastatin to atorvastatin 40 mg. Duplex of carotids ordered. Unable to get MRI of brain due to presence of pacemaker. Neurology consulted. PT OT, and [employer] CRM DEVELOPER evaluation. CKD stage 1 due to type 1 diabetes mellitus 09/11 Overview (09/29/2021): no change for now no adverse pressure from pantoprazole Assessment & Plan (09/13/2022 7:01 PM LAND[employer]LL G[employer] COLLECTION SYSTEM OPERATOR): Cr is at baseline. DM is well controlled, with A1C of 5.7. Pt is only at Metformin at home, currently replaced with SSI while admitted. Monitor accuchecks. Presence of cardiac pacemaker 08/01/2021 Overview (09/27/2021): (Status post) Ganglion cyst of dorsum of right wrist Primary osteoarthritis of right wrist 05/25/2021 Localized primary carpometacarpal osteoarthritis , right 05/25/2021 Encounter for Medicare annual wellness exam 03/10 Assessment & Plan (05/19/2024 1:23 PM CDT): A(n) yearly Medicare Annual Wellness Visit has been performed today. Rosa Escalante is not up to date on screening tests. He is in need of hep B and Cholesterol screening. He is not up to date on needed preventative vaccinations; He is in need of Influenza. We discussed healthy lifestyle habits, educational material has been given. Medications reviewed, changes documented as per the medical record and discussed with patient along with risks vs benefits. Specific topics reviewed: drugs, ETOH, and tobacco, importance of regular dental care, importance of regular exercise, importance of varied diet, limit TV, media violence, minimize junk food, and seat belts. Return in 4 months Assessment & Plan (03/28/2023 1:44 PM CDT): A(n) yearly Medicare Annual Wellness Visit has been performed today. Rosa Escalante is not up to date on screening tests. He is in need of Diabetic foot exam and Diabetic kidney disease screening. He is not up to date on needed preventative vaccinations; He is in need of Pneumonia (Prevnar-13 or Pneumovax-23). We discussed healthy lifestyle habits, educational material has been given. Medications reviewed, changes documented as per the medical record and discussed with patient along with risks vs benefits. Return in 6 months Assessment & Plan (03/31/2022 8:53 PM CDT): A(n) yearly Medicare Annual Wellness Visit has been performed today. Rosa Escalante is not up to date on screening tests. He is in need of Diabetic foot exam. He is not up to date on needed preventative vaccinations; He is in need of Pneumonia (Prevnar-13 or Pneumovax-23) and Covid-19 (booster). Continuing current regimen Labs reviewed. Noted triglycerides are increasing. Again, needing to adhere to lower-fat diet The remainder of the labs are fine. A1c is 5.7, which is in acceptable range (borderline, not diabetic) BP is a bit on the low-side today Assessment & Plan (03/28/2021 1:10 PM CDT): A yearly Medicare Annual Wellness Visit has been performed today. Rosa Escalante is not up to date on screening tests. He is in need of Diabetic eye exam- these have been ordered. He is up to date on needed preventative vaccinations. I did order an x-ray. Will see if there is any derangement. Mucocele noted on upper lip. Will monitor. I would recommend eventually seen a dentist, however these usually will involute on their own Carpal tunnel syndrome of right wrist 07/15/2020 Nonocclusive coronary athero sclerosis of [place] coronary artery 04/14/2020 Assessment & Plan (04/14/2020 11:14 AM CDT): Patient's cholesterol is under good control. I have suggested Vascepa specially in light of his diabetes and known coronary disease. He will be trying to get this through the [place]. Current use of termite control servicer anticoagulation 020 Assessment & Plan (03/28/2021 1:08 PM CDT): Continuing warfarin INR is being covered by plug grower High risk medications (not anticoagulants) long- term use 04/14/2020 Overview (04/14/2020): Sotalol Nasal valve collapse 07/22/2018 Assessment & Plan (03/14/2019 2:50 PM CDT): Patient again continues to demonstrate a positive modified Tippah maneuver. Patient did not respond favorably to Latera nasal implant. Patient continues to express a lot a concerns about his compromised nasal airway. The remainder of the nasal cavity and nasopharynx is widely patent with no signs of obstructive pathology. Patient would benefit from bilateral nasal valvuloplasty with cartilaginous graft. All questions were answered to what appeared to be patient's understanding and satisfaction. After the procedure was explained in full the potential risk, complications, benefits and alternatives patient would like to proceed. Patient will be scheduled in a timely fashion. Assessment & Plan (12/27/2018 7:19 AM CDT): Patient continues to demonstrate a positive Armando maneuver status post Latera nasal valvuloplasty. Patient was instructed to continue with the healing process. I expect as healing takes place stiffening will occur which will improve his nasal airway symptoms. Follow back up in three months to reassess. Assessment & Plan (09/22/2018 7:34 AM [employer]PERATOR): Patient overall experiencing improvement in his nasal airway symptoms. He still has noticed a slight restriction in the left nasal region. Overall he appears to be happy. I do expect further improvement as he continues to heal. Patient will follow back up in three months to reassess. Assessment & Plan (07/22/2018 8:07 AM [employer] OPERATOR): Patient has nasal valvular collapse with a positive modified Tippah maneuver. Based on patient's history and my physical findings patient meets indications undergo a nasal valvuloplasty. All questions were answered to what appeared to be patient's understanding and satisfaction. After the procedure was explained in full the potential risk, complications, benefits and alternatives patient would like to proceed. Patient will be scheduled in a timely fashion. Nasal turbinate hypertrophy 07/22/2018 Assessment & Plan (03/14/2019 2:48 PM CDT): Resolved with surgery Assessment & Plan (12/27/2018 7:19 AM CDT): Healing well status post partial inferior turbinate reduction. Assessment & Plan (07/22/2018 8:07 AM [employer] OPERATOR): Patient is noted to have hypertrophic inferior turbinates that have not responded favorably to medical management. This is interfering with his ability to affectively use his CPAP device. Recommend bilateral inferior turbinate reduction. All questions were answered to what appeared to be patient's understanding and satisfaction. After the procedure was explained in full the potential risk, complications, benefits and alternatives patient would like to proceed. Patient will be scheduled in a timely fashion. Congenital deviation of nasal septum 07/05/2018 Assessment & Plan (03/14/2019 2:48 PM CDT): Midline without encroachment on the nasal airway. Assessment & Plan (12/27/2018 7:20 AM CDT): Midline. Assessment & Plan (09/03/2018 11:37 AM [employer] OPERATOR): Nasal crusting was removed from patient's nasal passages. Patient is breathing comfortably through his nasal airway. Patient's preoperative symptoms have significantly improved since surgery. Patient is to continue with saline nasal irrigation daily. Patient will follow back up in two weeks. Assessment & Plan (08/16/2018 1:35 PM [employer] OPERATOR): Patient's splints were removed. Patient was breathing comfortably through his nasal airway. Patient was noted have patency bilaterally. Patient is instructed to perform saline nasal irrigation daily. Patient will follow back up one more time for postoperative exam. Assessment & Plan (07/22/2018 8:09 AM [employer] OPERATOR): Patient has a deviation of the nasal septum to the left causing nasal airway impairment. In addition patient also has hypertrophic inferior turbinates with nasal valvular collapse. This is Q minute of Elo obstructing his nasal airway increasing his nasal airway resistance. Recommend nasal septal reconstruction. All questions were answered to what appeared to be patient's understanding and satisfaction. After the procedure was explained in full the potential risk, complications, benefits and alternatives patient would like to proceed. Patient will be scheduled in a timely fashion. Thyroid nodule 06/10/2018 Assessment & Plan (10/06/2022 1:27 PM [employer] OPERATOR): patient found to have thyroid nodule on Ct scan March 2018 Ultrasound in June/2018 showed 2.4X 1.9 cm nodule on the right lobe- TI-RADS 3 Stable in size on ultrasound in January/2019 and 11/07/21 Patient clinically euthyroid . Normal TSH of 2.3 on 03/21/21 Plan: We will continue to monitor thyroid, and repeat ultrasound this month No f/u will be needed if nodule is stable Patient understands and agrees with above plan. Assessment & Plan (10/07/2021 3:56 PM [employer] OPERATOR): patient found to have thyroid nodule on Ct scan March 2018 Ultrasound in June/2018 showed 2.4X 1.9 cm nodule on the right lobe- TI-RADS 3 Stable in size with last ultrasound in January/2019 Patient clinically euthyroid . Normal TSH of 2.3 on 03/21/21 Plan: We will continue to monitor thyroid, and repeat ultrasound this month He will need a final ultrasound in one year, if this one is stable Patient understands and agrees with above plan. WATKINS (nonalcoholic steatohepatitis) 05/21/2018 Assessment & Plan (03/28/2021 1:09 PM CDT): BMI Follow-up includes: nutrition counseling. Parkinson's disease without dyskinesia or fluctuating manifestations 12/20/2017 Assessment & Plan (11/24/2024 12:16 PM CDT): Mr. Escalante is a 69 year-old man with Parkinson's disease, atrial fibrillation s/p ARACELI occluder, strokes, migraine, LUCI, and biopsy-proven immune neuropathy with axonal features. PD symptoms began in 2014 or earlier at approximate age 59 or younger with gait changes. Motor symptoms had largely been stable. However, he had three strokes in the 15 months preceding his last clinic visit with us April 2024 (the most recent of which had been 12/28/2022). He has intervally had a couple of admissions in the past few months for a-fib with RVR. He reports today approximately two months of bothersome fatigue and generalized weakness which is exacerbated by exertion and associated with dyspnea on exertion and at times lightheadedness. Lightheadedness and sensation of weakness can be orthostatic in nature at times. He previously tolerated levodopa with complaint of some occasional lightheadedness with standing. Motor exam on UPDRS is grossly stable today. He continues to have imbalance though one fall since last visit. His gait instability is likely multifactorial in setting of PD, neuropathy, prior stroke, most recently perhaps some deconditioning in setting of multiple hospitalizations and decreased activity. I do want to rule out any contributory orthostatic hypotension to his presenting symptoms and asked he check OBP twice daily for one week and share with both our office as well as his plug grower, Dr. Agustin (checking measurements before AM meds and approximately 1 hour after to assess for effect). If there is no OH then we may trial increasing his carbidopa-levodopa to 2.5 tabs TID and monitoring for benefit for gait/balance though I do not believe his symptoms of decreased exercise tolerance and dyspnea are related to PD and he should continue to follow with his plug grower for evaluation and treatment of his a-fib complicated by RVR requiring multiple recent admission. Generally his fatigue and daytime sleepiness as well as cognitive changes (decreased recall and concentration) may be multifactorial in setting of polypharmacy (amitriptyline, pregabalin, topiramate) as well as potentially inadequately treated LUCI (on supplemental O2 currently, no positive pressure). There may certainly also be component of cognitive impairment related to PD with our without beta-deposition though we should exclude other factors as well. Will check reversible labs B12 and folate (recent TSH wnl at 0.69) and recommend re-establishing with [facility] for further evaluation and potential optimization of LUCI management. He has seen benefit from botox for cervical dystonia and has follow-up in Botox clinic in January 2025 for ongoing injections. Will further evaluate cognitive impairment as above and additionally obtain neuropsychological testing today. For now can continue donepezil 5 mg. Can consider increasing dose at later date as tolerated versus changing to rivastigmine patch though he does not endorse any side effects after starting the medication back in April/May 2024 he had concerns it was contributing to episodes of weakness which would be unexpected. He has GI bloating and constipation though no nausea or diarrhea associated with the medication at this time. He is currently receiving home PT and OT and should continue to do so for rehabilitation following his recent hospitalizations as well as to work on gait/balance training. Recommendations: For now continue current carbidopa-levodopa 25/100 mg TID (2.5/2/2) though recommended adhering to a schedule at least 4-5 hours between doses (rather than 3 at present time) - this could be at 1000/1500/2000 Check orthostatic blood pressures sitting/standing before and after AM medications x 1 week and share with our office as well as cardiology Continue same donepezil 5 mg daily for now Neuropsychological testing today (none since 2018 and cannot locate results) Will check B12 and folate today for potential reversible contributors to cognitive decline [facility] referral for LUCI Continue to follow with cardiology (Dr. Schmidt) for A-fib RVR and ongoing evaluation/treatment of exertional fatigue, weakness, dyspnea Continue home PT,OT Follow-up in 3 months with me Follow-up with [facility] and Stroke Neurology for neuropathy and ischemic strokes, respectively Follow-up as scheduled for ongoing botox for cervical dystonia Assessment & Plan (10/15/2024 8:52 PM [employer] OPERATOR): History of parkinson's disease since 2014. Increased weakness since hospitalization. Order home health PT Assessment & Plan (05/08/2024 1:11 PM CDT): ASSESSMENT - 68 y.o. man with Parkinson's disease and immune neuropathy, with PD present for 9 years that began in 2015 or earlier at age 59 or younger with gait changes. He also has migraine headaches and LUCI. Motor symptoms have been stable. However, he has had three strokes in the 15 months , of note most recent in 12/28/2022. He also has tolerated levodopa but complains of occasional lightheadedness with standing. Motor symptoms are stable, but he continues to have imbalance. Gait instability is from PD but also from his most recent stroke affecting his right side. We discussed a slight increase in the levodopa to 2.5-2-2 (from 2 tablets 25/100 TID) to see if that will help with his balance . We discussed to watch for dyskinesias and orthostasis. He is on several anti-hypertensives so I would take some of those off if he feels that he needs the 2.5 tablets TID. He is also very bothered by his cervical dystonia. We will make a Botox appointment for him in the next month so that he can get injections for neck pain and stiffness. He also states that he has had more cognitive decline and would like to try donepezil. We will stagger this with the increase in levodopa. He also endorses dysphagia, and will get speech therapy for swallowing exercises. PLAN (phrased as addressed to the patient): Increase levodopa to 2.5/2/2 tablets at breakfast, lunch, dinner (just the first dose) Botox appointment for neck pain and stiffness (cervical dystonia) Start donepezil in 1 month Speech therapy Physical therapy Exercise 3x/week, 30 mins each Hydrate (64 oz) / day Assessment & Plan (01/03/2023 8:41 PM CDT): ASSESSMENT - 67 y.o. man with Parkinson's disease and immune neuropathy, with PD present for 8 years that began in 2015 or earlier at age 59 or younger with gait changes. He also has migraine headaches and LUCI. Motor symptoms have been stable. However, he has had three strokes in the 15 months , of note most recent in 12/28/2022. He also has tolerated levodopa but complains of occasional lightheadedness with standing. Motor symptoms are stable, but remarkably he has only fallen once in the past year compared to several falls in the previous year. I would like to keep his dosing unchanged; however, he feels that he is doing well and does not need 2.5 tablets. I discussed it is ok to try 2 tablets TID if he is having drops in orthostasis. He will check his blood pressures to see. We should then decrease his levodopa or decrease his anti-hypertensive meds. He is on several anti-hypertensives so I would take some of those off if he feels that he needs the 2.5 tablets TID. He will try it out to see how his balance is on 2 tablets of levodopa TID. I discussed to watch for falls and imbalance. 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 Now with pacemaker, on apixaban. There is discussion about adding on plavix for him by the PCP. I will defer this to the stroke neurologist (referral placed to Dr. Paul Freeman or Stroke neurology) PLAN (phrased as addressed to the patient): - As we discussed, your PD symptoms have changed very little in the past year. Inclined to leave levodopa at 2.5 tablets TID. - However, can take BP sitting and standing. Wait 3 minutes to take the BP after standing. If huge drop in the SBP (top > 20), then we go down to on levodopa to 2/2/2. If notice more unsteadiness, then 2/2.5/2. Wait 4 hours between each dose. We should also then discuss with plug grower or PCP about taking down antihypertensives. Assessment & Plan (09/13/2022 7:04 PM [employer] OPERATOR): Continue home Sinemet Assessment & Plan (01/03/2022 2:35 PM CDT): ASSESSMENT - 66 y.o. man with Parkinson's disease and immune neuropathy, with PD present for 7 years that began in 2014 or earlier at age 59 or younger with gait changes. He also has migraine headaches and LUCI. - Motor symptoms: he has noticed a little more slowing of walking, but remarkably he has not fallen in the past year compared to several falls in the previous year. The motor UPDRS score today was 26 in Dec 2021 on LDOPA 750, 21 in Dec 2020, 14 in Nov 2019 on LDOPA 750 mg/day, 20 in January 2019, 19 in Jul 2018. Will keep the levodopa dose unchanged. - CVA: he had a cerebral infarct that caused a residual R homonymous hemianopia. Now with pacemaker, on apixaban. - Falls: no falls in the past year! PLAN (phrased as addressed to the patient): - As we discussed, your PD symptoms have changed very little in the pat year. - Continue carbidopa/levodopa 25/100, 2.5 tabs 3x/day. My total encounter time on 01/03/2022 was 34 minutes which was spent in the activities documented in the note. This includes time spent prior to the visit and after the visit in direct care of the patient. This time does not include time spent in any separately reportable services. Assessment & Plan (07/14/2021 11:11 PM CDT): Continue Sinemet Assessment & Plan (12/20/2020 2:13 PM CDT): ASSESSMENT - 65 y.o. man with Parkinson's disease and immune neuropathy, with PD present for 6 years that began in 2014 or earlier at age 59 or younger with gait changes. He also has migraine headaches and LUCI. - Motor symptoms: these have remained adequately controlled. The motor UPDRS score today was 21 in Dec 2020, 14 in Nov 2019 on LDOPA 750 mg/day, 20 in January 2019, 19 in Jul 2018. Will keep the levodopa dose unchanged. - Falls: a few falls, all triggered by obstacles (item on pavement, uneven ground in the [place]). I educated him on reducing this risk. - Insomnia: remains resolved. - Daytime drowsiness and memory problems: much improved. He has been using a nasal dilator in lieu of CPAP. Sometimes naps during the day, but does not doze off while sitting. - Falls: several PLAN (phrased as addressed to the patient): - Continue carbidopa/levodopa 25/100, 2.5 tabs 3x/day - Contact my office if your balance worsens. This encounter's total [id number] time was greater than 20 minutes. I spent more than 50% of this time in counseling and/or coordination of care as documented in the note. The patient visit started at 1350 and ended at 1415. Greater than 50% of the visit was spent on counseling and coordinating care. Patient was counseled on rationale for keeping the dose of carbidopa/levodopa unchanged. Hx of migraine headaches 09/21/2017 Insomnia 06/27/2017 Type 2 diabetes mellitus wit hout complication, without long-term current use of insulin 02/21/2017 Assessment & Plan (12/30/2021 5:07 PM CDT): Blood pressure looks good today I did not see any lesions in the mouth corresponding to the pain, although we may have to have dentist take a look as well. I am considering TMJ disorder, right-sided. Suggested trial of OTC mouth guard or sleep bruxism for nighttime usage, for example Dentek brand. It will be custom, however it may give us an idea if TMJ disorder might be present Rate is controlled today Continuing the current regimen Labs as ordered for 3 months out Assessment & Plan (10/07/2021 3:55 PM [employer] OPERATOR): Patient with history of pre-diabetes since 2017 A1c 6.3% on 09/27/21 Patient on Metformin 500 mg bid. Plan: Reviewed with patient his diabetes control Continue Metformin Patient to follow ADA diet- and offered referral to dietitian. Follow up with PCP Assessment & Plan (07/14/2021 11:12 PM CDT): Patient is on metformin at home. Will monitor on a sliding scale. Will continue amitriptyline and Lyrica for neuropathy. Assessment & Plan (03/28/2021 1:09 PM CDT): Hemoglobin A1c is 5.9%. This may give us an opportunity to cut back metformin dosage. Will cut in half from the current dosage. Benign hypertensive kidney d isease with chronic kidney disease stage I through stage IV, or unspecified(403.10) 02/21/2017 Assessment & Plan (09/29/2021 1:02 PM [employer] OPERATOR): Continue to monitor BP. The BP is fine today, but the report yesterday warrants some concern Headache resolved Will continue current regimen Arthritis of foot 02/29/2016 Plantar fascial fibromatosis 02/29/2016 Synovitis of left foot 02/29/2016 Synovitis of right foot 02/29/2016 Plantar fasciitis of left foot 11/09/2015 Chronic migraine without aura 07/14/2015 Overview (12/15/2016): Chronic migraine without aura Assessment & Plan (10/24/2022 10:36 AM [employer] OPERATOR): Patient on the Topamax, discussed no red flag sx present at this time but signs to be mindful of. Possibly change in weather is triggering the migraines and needing the Maxalt as he notes increase in allergy sx. MRI brain is ordered for Jered as he has pacemaker present, pt's notes they have not hear anything as of yet to set up. Printed referral for them to call and get set up. Let us know if any issue. Assessment & Plan (09/13/2022 7:00 PM [employer] OPERATOR): No headache at this time. Home Topamax continued. Assessment & Plan (03/28/2021 1:10 PM CDT): Refilled Maxalt. Continuing on topiramate per Neurology. Numbness and tingling sensation of skin 07/14/20 15 Overview (12/15/2016): Numbness and tingling sensation of skin Obstructive sleep apnea syndrome 02/03/2015 Assessment & Plan (07/14/2021 11:13 PM CDT): Patient no longer able to tolerate CPAP however uses a nasal dilator which states works for him. He has it at bedside. Assessment & Plan (04/14/2020 11:13 AM CDT): Patient has been intolerant of CPAP and is no longer using. Hypertension 02/03/2015 Assessment & Plan (09/13/2022 7:02 PM [employer] OPERATOR): Pt is not on any BP meds at home, and his BP is at goal. Currently allowing for permissive HTN. Peripheral nerve disease 02/03/2015 Generalized osteoarthritis 01/24/2014 Overview (12/13/2016): GENERAL OSTEOARTHROSIS Venous thrombosis 01/24/2014 Overview (12/13/2016): VENOUS THROMBO
--- OUTSIDE RECORDS SUMMARY | 2025-01-21 11:40 | XMS_ITS | Encounter Summary ---
Author Organization [facility] Address [address] [facility] [address] [place] [address] Phone Care Team Providers Care Systems Developer Name Role Phone Tuan Bolden MD Unavailable [phone] Kane Fitzgerald MD Unavailable [phone] Veronica Swanson MD Unavailable + [phone] Lakeisha Agustin MD Unavailable Jesús Mo DMD Unavailable [phone] Samuel Moura MD Unavailable [phone] Luh Costa MD Unavailable Carlos Espinal MD Primary Care Provider [phone] Tyra Flores MD PhD Unavailable [phone] Reason for Visit * Consultation (Routine) - Closed Specialty Diagnoses / Procedures Referred By Contac t Referred To Contact Sleep Medicine Diagnoses LUCI (obstructive sleep apnea) Lady Kumar NP [address] [place] [address] Phone: tel: fax: [facility] (All Locations) Referral ID Status Reason Start Date Expiration Date V isits Requested Visits Authorized [id number] Closed Specialty Services Required 11/24/2024 12/24/2025 1 1 Encounter Details Date Type Department Care Team (Late st Contact Info) Description 01/20/2025 10:45 AM CDT Office Visit [facility] [address] [facility] 6th [address] [place] [id number] Luda Hilton MD [address] [place] [address] LUCI (obstructive sleep apnea) Social History Tobacco Use Types Packs/Day Years Used Date Smoking Tobacco: Never Passive Smoke Exposure: Never Smokeless Tobacco: Never Tobacco Cessation:Counseling Given: Not Answered Alcohol Use Standard Drinks/Week Comments No 0 (1 standard drink = 0.6 oz pur e alcohol) [facility] Utilities Answer Date Recorded In the past 12 months has e [employer], gas, oil, or water [employer] threatened to shut off services in your home? No 10/13/2024 Humiliation, Afraid, Rape, and Kick questionnair e Answer Date Recorded Within the last year, have y ou been afraid of your partner or ex-partner? No 10/13/2024 Within the last year, have y ou been humiliated or emotionally abused in other ways by your partner or ex-partner? No Within the last year, have y ou been kicked, hit, slapped, or otherwise physically hurt by your partner or ex-partner? No 10/13/2024 Within the last year, have y ou been raped or forced to have any kind of sexual activity by your partner or ex-partner? No 10/13/2024 Social Connection and Isolat ion Panel [NHANES] Answer Date Recorded In a typical week, how many times do you talk on the phone with family, friends, or neighbors? More than three times a week 10/13/2024 How often do you get togethe r with friends or relatives? More than three times a week 10/13/2024 How often do you attend chur ch or bahai services? Never 10/13/2024 Do you belong to any clubs o r organizations such as evangelical groups, unions, fraternal or athletic groups, or school groups? Yes 10/13/2024 How often do you attend meet ings of the clubs or organizations you belong to? 1 to 4 times per year 10/13/2024 Are you , , di vorced, , never , or living with a partner? 10/13/2024 AUDIT-C Answer Date Recorded Q1: How often do you have a drink containing alcohol? Never 10/10/2024 Q2: How many drinks containi ng alcohol do you have on a typical day when you are drinking? Patient does not drink Q3: How often do you have si x or more drinks on one occasion? Never 10/10/2024 Overall Financial Resource Strain (CARDIA) Answe r Date Recorded How hard is it for you to pa y for the very basics like food, housing, medical care, and heating? Not hard at all 10/13/2024 PHQ-2 Answer Date Recorded PHQ-2 Total Score (If total score is 3 or more points, staff should administer the PHQ-9) 0 08/29/2024 [facility] - Occupational Stress Questionnaire Answer Date Recorded Do you feel stress - tense, restless, nervous, or anxious, or unable to sleep at night because your mind is troubled all the time - these days? Only a little 10/13/2024 Exercise Vital Sign Answer Date Recorde d On average, how many days pe r week do you engage in moderate to strenuous exercise (like a brisk walk)? 0 days Minutes of Exercise per Session Not on file 10/13/2024 Hunger Vital Sign Answer Date Recorded Within the past 12 months, y ou worried that your food would run out before you got the money to buy more. Never true 10/13/19 25 Within the past 12 months, t he food you bought just didn't last and you didn't have money to get more. Never true 10/13/2024 PRAPARE - Transportation Answer Date Re corded In the past 12 months, has l ack of transportation kept you from medical appointments or from getting medications? No 11/2024 In the past 12 months, has l ack of transportation kept you from meetings, work, or from getting things needed for daily living? No 10/13/2024 Housing Stability Vital Sign Answer Eddie e Recorded In the last 12 months, was t here a time when you were not able to pay the mortgage or rent on time? No 10/31/2023 In the last 12 months, how many places have you lived? 1 10/31/2023 In the last 12 months, was t here a time when you did not have a steady place to sleep or slept in a alf (including now)? No 10/31/2023 PHQ-9 Answer Date Recorded PHQ-9 Total Score 10 05/06/2024 Housing Stability Vital Sign Answer Eddie e Recorded In the last 12 months, was t here a time when you were not able to pay the mortgage or rent on time? No 10/13/2024 In the past 12 months, how m any times have you moved where you were living? 0 10/13/2024 At any time in the past 12 m [facility], were you homeless or living in a alf (including now)? No 10/13/2024 Personal Safety Answer Date Recorded Have you ever been in or are you currently in a harmful physical or emotional relationship or is someone making you feel afraid or unsafe? Denies 11/09/2024 Education Answer Date Recorded What is the highest level of school you have completed or the highest degree you have received? 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 Gender Identity Male 08/09/2021 9:27 AM OVERLOCK SEWING MACHINE OPERATOR Sexual Orientation Not on file Occupation Industry Job Start Date Job End Date Not on file Not on file Not on file Not on file documented as of this encounter Last Filed Vital Signs Vital Sign Reading Time Taken Comments Blood Pressure 112/76 01/20/2025 10:22 AM CDT Pulse 108 01/20/2025 10:22 AM CDT Temperature 36.4 C (97.6 F) 01/20/2025 10:22 AM CDT Respiratory Rate - - Oxygen Saturation 96% 01/20/2025 10:22 AM CDT Inhaled Oxygen Concentration - - Weight 105.9 kg (233 lb 8 oz) 01/20/2025 10:22 A M CDT Height 177.8 cm (5' 10 ) 01/20/2025 10:22 AM CDT Body Mass Index 33.5 01/20/2025 10:22 AM CDT documented in this encounter Ordered Prescriptions Prescription Sig Dispense Quantity Refills Last Filled Start Date End Date suvorexant 5 mg tablet Take 5-10 mg by mouth nightly as needed (as needed for insomnia) 60 tablet 5 01/20/2025 5 documented in this encounter Plan of Treatment Not on file documented as of this encounter Visit Diagnoses Diagnosis LUCI (obstructive sleep apnea) Obstructive sleep apnea (adult) (pediatric) documented in this encounter Historical Medications * This list may reflect changes made after this encounter. mecobalamin (B12 ACTIVE ORAL) Take by mouth added in this encounter Orders Outpatient Referral Count Last Ordered Date Fir st Ordered Date AMB REFERRAL TO SLEEP MEDICINE 1 01/20/2025 documented in this encounter Care Teams Systems Developer Relationship Specialty Start Date End Date Carlos Espinal MD [address] [facility] [address] [place] [address] PCP - General Family Medicine 10/14/24 Tuan Bolden MD Consulting Physician Neurology 12/20/17 Kane Fitzgerald MD [address] [address] Consulting Physician Internal Medicine 12/26/18 Veronica Swanson MD [address] [facility] [address] [place], [place] [address] Referring Physician Neurology 01/13/19 [place] [address] [facility] [address] [place] [address] Consulting Physician Cardiology 07/19/21 Jesús Mo, MARIBETH [address] [place] [address] Surgeon Oral Surgery 03/28/22 Samuel Moura MD [address] [place] [address] Surgeon Otolaryngology 03/28/22 Luh Costa MD [address] [place] [address] Consulting Physician Urology 09/21/22 yTra Flores MD PhD [address] [facility] [address] [place] [address] Consulting Physician Neurology 11/18/24 documented as of this encounter
--- OUTSIDE RECORDS SUMMARY | 2025-01-21 11:40 | XMS_ITS | Encounter Summary ---
Author Organization [facility] Address [address] [facility] [address] [place] [address] Phone Care Team Providers Care Complaint Inspector Name Role Phone Carlos Espinal MD Primary Care Provider [phone] Tuan Bolden MD Unavailable [phone] Bobo Mccain DO Unavailable [phone] Dameon Ontiveros MD Unavailable [phone] Kane Fitzgerald MD Unavailable + Veronica Swanson MD Unavailable + [phone] Heber Wells MD Unavailable [phone] Lakeisha Agustin MD Unavailable Eva Torres RN Unavailable [phone] Aylin Bentley LPN Unavailable [phone] Jesús Mo DMD Unavailable [phone] Samuel Moura MD Unavailable Luh Costa MD Unavailable Aye Cotto MA Unavailable [phone] Maynor Pepe RN Unavailable [phone] Carlos Espinal MD Primary Care Provider [phone] Tyra Flores MD PhD Unavailable [phone] Encounter Details Date Type Department Care Team (Late st Contact Info) Description 08/21/2017 Orders Only [facility] ProviderAntione MD [address] [place] [address] Social History Tobacco Use Types Packs/Day Years Used Date Smoking Tobacco: Never Alcohol Use Standard Drinks/Week Comments No 0 (1 standard drink = 0.6 oz pur e alcohol) Sex and Gender Information Value Date Recorded Sex Assigned at Not on file Legal Sex Male 11:56 PM EMERGENCY COMMUNICATIONS OFFICER Gender Identity Male 08/09/2021 9:27 AM EMERGENCY COMMUNICATIONS OFFICER Sexual Orientation Not on file documented as of this encounter Plan of Treatment Not on file documented as of this encounter Procedures Procedure Name Priority Date/Time Associated Diagnosis Comments DISCHARGE LABORATORY CUMULATIVE REPORT 08/21/2017 12:00 AM EMERGENCY COMMUNICATIONS OFFICER documented in this encounter Results * DISCHARGE LABORATORY CUMULATIVE REPORT (08/21/2017 12:00 AM EMERGENCY COMMUNICATIONS OFFICER) Narrative 08/21/2017 12:00 AM EMERGENCY COMMUNICATIONS OFFICER Ordered by an unspecified provider. Historical Provider LAB BLOOD ORDERABLES Bibi l Result documented in this encounter Visit Diagnoses Not on filedocumented in this encounter Additional Health Concerns Infection Onset Date Last Indicated Resolved Time COVID: Suspected 10/09/2024 10/09/2024 10/09/2024 6:15 PM EMERGENCY COMMUNICATIONS OFFICER COVID: Suspected 11/09/2024 11/09/2024 11/09/2024 9:51 PM EMERGENCY COMMUNICATIONS OFFICER COVID: Suspected 11/30/2024 11/30/2024 11/30/2024 2:38 PM CDT COVID: Suspected 11/30/2024 11/30/2024 11/30/2024 7:21 PM CDT documented as of this encounter Care Teams Complaint Inspector Relationship Specialty Start Date End Date Carlos Espinal MD PCP - General 12/08/16 10/13/24 Carlos Espinal MD [address] [facility] [address] [place] [address] PCP - General Family Medicine 10/14/24 Tuan Bolden MD Consulting Physician Neurology 12/20/17 Bobo Mccain DO Cardiovascular Disease 03/26/18 2 Dameon Ontiveros MD Consulting Physician Orthopedic Surgery 05/21/18 0 Kane Fitzgerald MD [address] [facility] [address] [place] [address] Consulting Physician Internal Medicine 12/26/18 Veronica Swanson MD [address] [facility] [address] [place] [address] Referring Physician Neurology 01/13/19 Heber Wells MD [address] [place] [address] [facility] [address] [place] [address] Consulting Physician Neurology 07/19/21 09/26/21 [place] [address] [address] Consulting Physician Cardiology 07/19/21 Eva Torres, MILI [address] [place] [address] [address] [place] [address] Lapel Baster 07/20/21 08/10/21 Aylin Bentley LPN [address] [place] [address] [address] [place] [address] ACO Care Mower Operator 12/19/21 12/20/21 Jesús Mo, DMD [address] [place] [address] Surgeon Oral Surgery 03/28/22 Samuel Moura MD [address] [place] [address] Surgeon Otolaryngology 03/28/22 Luh Costa MD [address] [place] [address] Consulting Physician Urology 09/21/22 Aye Cotto MA [address] [place] [address] [address] [place] [address] ACO Care Mower Operator 12/29/22 12/29/22 Maynor Pepe, MILI [address] [place] [address] [address] [place] [address] Lapel Baster 10/10/24 11/03/24 Tyra Flores MD PhD [address] [place], [place] [address] [facility] [address] [place] [address] Consulting Physician Neurology 11/18/24 documented as of this encounter
--- OUTSIDE RECORDS SUMMARY | 2025-01-21 11:40 | XMS_ITS | Clinical Summary ---
Author Organization [facility] Address [address] [place] [address] Phone Care Team Providers Care Representative Government Relations Name Role Phone Carlos Espinal MD Primary Care Provider Allergies No known active allergies Medications oxyCODONE-aceta minophen (PERCOCET) 5-325 MG Tablet half to one tablet by mouth every 3-4 hours as needed for pain Active sotalol (BETAPACE) 80 MG Tablet Take 80 mg by mouth 2 times daily. Active amitriptyline (ELAVIL) 100 MG Tablet Take 100 mg by mouth nightly. Active carbidopa-levod opa (SINEMET) 25-100 MG Tablet Take 2 Tabs by mouth 3 times daily. Active cholecalciferol 1000 UNIT Tablet Take 1 Tab by mouth daily. Active diphenhydrAMINE (BENADRYL) 25 MG Tablet Take 100 mg by mouth nightly as needed for Sleep. Active fish oil-omega-3 fatty acids 1000 MG Capsule Take 1,000 mg by mouth daily. Active fluticasone (FLONASE ALLERGY RELIEF) 50 MCG/ACT Suspension 2 Sprays by Nasal route daily. Active magnesium gluconate (MAGONATE) 500 MG Tablet Take 500 mg by mouth daily. Active metFORMIN (GLUCOPHAGE) 1000 MG Tablet Take 500 mg by mouth 2 times daily. Active Multiple Vitamins-Minera ls (MULTIVITAMIN ADULT PO) Take 1 Tab by mouth daily. Active Pantoprazole Sodium (PROTONIX PO) Take 40 mg by mouth daily. Active Potassium Gluconate 595 MG Capsule Take 1 Cap by mouth daily. Active Pregabalin (LYRICA) 300 MG Capsule Take 300 mg by mouth 2 times daily. Active Rizatriptan Benzoate 10 MG Tablet take 1 tab by mouth daily as needed for migraine; may repeat every 2 hours for 2 doses ifneede. take no more than 3 doses in a 24 hour period. Active simvastatin (ZOCOR) 40 MG Tablet Take 40 mg by mouth daily. Active Topiramate (TOPIRAGEN) 50 MG Tablet Take 50 mg by mouth 2 times daily. Active venlafaxine (EFFEXOR) 37.5 MG Tablet Take 75 mg by mouth daily. Active Calcium Carbonate-Vitam in D (CALCIUM 600/VITAMIN D PO) Take 1 Tab by mouth daily. Active acetaminophen (TYLENOL) 500 MG Tablet Take 1,000 mg by mouth every 6 hours as needed for Moderate or more severe pain. Active warfarin (COUMADIN) 5 MG Tablet Take 5 mg by mouth Every Sunday, Sunday, Sunday. 05/28/2018 Active traZODone (DESYREL) 100 MG Tablet Take 100 mg by mouth nightly. Active Active Problems No known active problems Social History Tobacco Use Types Packs/Day Years Used Date Smoking Tobacco: Never Smokeless Tobacco: Never Sex and Gender Information Value Date Recorded Sex Assigned at Not on file Legal Sex Male 10:21 PM CDT Gender Identity Not on file Sexual Orientation Not on file Last Filed Vital Signs Vital Sign Reading Time Taken Comments Blood Pressure 136/78 05/17/2019 9:40 AM CDT Pulse 68 05/17/2019 9:40 AM CDT Temperature 36.6 C (97.8 F) 05/17/2019 9:40 AM CDT Respiratory Rate 24 05/17/2019 9:40 AM CDT Oxygen Saturation 94% 05/17/2019 9:40 AM CDT Inhaled Oxygen Concentration - - Weight 102.1 kg (225 lb) 05/17/2019 9:40 AM CDT Height 177.8 cm (5' 10 ) 05/14/2018 11:46 AM CDT Body Mass Index 32.28 05/14/2018 11:46 AM CDT Plan of Treatment Health Maintenance Due Date Last Done Comments Hepatitis C Virus (HCV) Screening 1955 TdaP Immunization 1955 Colonoscopy 1998 Colorectal Cancer Screening 1998 Cologuard 2003 Immunochemical Fecal Occult Blood 2003 Pneumococcal Immunization (5 0+ years) (1 of 1 - PCV) 2003 Zoster Immunization (1 of 2) 2003 Influenza Immunization (#1) 2024 06/09/2016 SARS-COV-2 Immunization (4 - season) 2024 07/02/2021, 10/25/2020, 10/04/2020 Respiratory Syncytial Virus (RSV) Immunization (Adult) (1 - 1-dose 75+ series) 2028 Hepatitis B Immunization Aged Out No longer eligible based on patient's age to complete this topic Meningococcal Immunization (ACWY) Aged Out No longer eligible b ased on patient's age to complete this topic Rotavirus Immunization Aged Out No lo nger eligible based on patient's age to complete this topic Insurance MEDICARE [employer] MEDICARE SUP Advance Directives * Full Code (Latest Code Status on File) Date Activated Date Inactivated Comments 06/04/2018 1:07 PM Care Teams Representative Government Relations Relationship Specialty Start Date End Date Carlos Espinal MD [address] [place] [address] PCP - General Family Medicine 08/22/16
--- OUTSIDE RECORDS SUMMARY | 2025-01-21 11:40 | XMS_ITS | Clinical Summary ---
Author Organization [facility] Address [address] [place] [address] Care Team Providers Care Delivery Room Supervisor Name Role Phone Tuan Bolden MD Unavailable [phone] Kayley Hartley MD Unavailable [phone] Veronica Swanson MD Unavailable [phone] Lakeisha Agustin MD Unavailable Jesús Mo DMD Unavailable [phone] Samuel Moura MD Unavailable [phone] Luh Costa MD Unavailable Carlos Espinal MD Primary Care Provider [phone] Tyra Flores MD PhD Unavailable [phone] Allergies Active Allergy Reactions Criticality Noted Date [...] 06/04/2024 Assessment & Plan (10/15/2024 2:39 PM ENERGY MANAGEMENT SPECIALIST): Bobo Banegas is a 69 y.o. old male who [...] Assessment & Plan (06/10/2024 8:02 AM CDT): Bobo Banegas is a 69 y.o. old male who [...] Nasal saline spray (Simply saline, Little Remedies, [place], [place]) 2 second sprays or 2 squeezes into [...] Nasal saline spray (Simply saline, [employer] Remedies, [place], [place]) 2 second sprays or 2 squeezes into [...] 07/16/2023 Assessment & Plan (10/15/2024 8:54 PM ENERGY MANAGEMENT SPECIALIST): Uses oxygen at night. 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 Discussed relevant follow up testing and specialty follow-up needed. Referrals placed as needed. Will have patient follow up as as scheduled with Primary Care Physician: Carlos Espinal Assessment & Plan (09/22/2022 2:13 PM ENERGY MANAGEMENT SPECIALIST): I have reviewed the hospital record, medications, and relevant testing from Bobo Banegas's recent admission. Complications and discharge plan have been noted, reviewed. Post-discharge testing has been ordered. Awaiting PRESS SET UP evaluation Will want PT/OT in all likelihood as well, probably to wrap in with PD therapy MRI planned, will need to get from [facility] Also want to get liver MRI to assess mass in liver found during hospitalization Plan on overnight oximetry; in the past he has declined CPAP due to intolerance Liver mass 09/15/2022 [facility]erebrovascular accident [facility]CVA), [facility] 09/13/2022 Assessment & Plan (09/13/2022 7:00 PM ENERGY MANAGEMENT SPECIALIST): Patient with multiple risk factors including AFib, [...] of pacemaker. Neurology consulted. PT OT, and PRESS SET UP evaluation. 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 DM is well [...] Annual Wellness Visit has been performed today. Bobo Banegas is not up to date on screening [...] Annual Wellness Visit has been performed today. Bobo Banegas is not up to date on screening [...] Annual Wellness Visit has been performed today. Bobo Banegas is not up to date on screening [...] Annual Wellness Visit has been performed today. 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 I have suggested Vascepa specially in light of his diabetes and known coronary disease. He will be trying to get this through the ID. Current use of terminologist anticoagulation 020 Assessment & Plan (03/28/2021 1:08 PM CDT): Continuing warfarin INR is being covered by derrick engineer High risk medications (not anticoagulants) long- term use 04/14/2020 Overview (04/14/2020): Sotalol Nasal valve collapse 07/22/2018 Assessment & Plan (03/14/2019 2:50 PM CDT): Patient again continues to demonstrate a positive modified Armando maneuver. Patient did not respond favorably to [...] reassess. Assessment & Plan (09/22/2018 7:34 AM ENERGY MANAGEMENT SPECIALIST): Patient overall experiencing improvement in his nasal airway symptoms. He still has noticed a slight restriction in the left nasal region. Overall he appears to be happy. I do expect further improvement as he continues to heal. Patient will follow back up in three months to reassess. Assessment & Plan (07/22/2018 8:07 AM ENERGY MANAGEMENT SPECIALIST): Patient has nasal valvular collapse with a positive modified [place] maneuver. Based on patient's history and my [...] reduction. Assessment & Plan (07/22/2018 8:07 AM ENERGY MANAGEMENT SPECIALIST): Patient is noted to have hypertrophic inferior [...] Midline. Assessment & Plan (09/03/2018 11:37 AM ENERGY MANAGEMENT SPECIALIST): Nasal crusting was removed from patient's nasal passages. Patient is breathing comfortably through his nasal airway. Patient's preoperative symptoms have significantly improved since surgery. Patient is to continue with saline nasal irrigation daily. Patient will follow back up in two weeks. Assessment & Plan (08/16/2018 1:35 PM ENERGY MANAGEMENT SPECIALIST): Patient's splints were removed. Patient was breathing comfortably through his nasal airway. Patient was noted have patency bilaterally. Patient is instructed to perform saline nasal irrigation daily. Patient will follow back up one more time for postoperative exam. Assessment & Plan (07/22/2018 8:09 AM ENERGY MANAGEMENT SPECIALIST): Patient has a deviation of the nasal [...] 06/10/2018 Assessment & Plan (10/06/2022 1:27 PM ENERGY MANAGEMENT SPECIALIST): patient found to have thyroid nodule on [...] plan. Assessment & Plan (10/07/2021 3:56 PM ENERGY MANAGEMENT SPECIALIST): patient found to have thyroid nodule on [...] & Plan (11/24/2024 12:16 PM CDT): Mr. Banegas is a 69 year-old man with Parkinson's [...] both our office as well as his derrick engineer, Dr. Agustin (checking measurements before AM meds and approximately 1 hour after to assess for effect). If there is no OH then we may trial increasing his carbidopa-levodopa to 2.5 tabs TID and monitoring for benefit for gait/balance though I do not believe his symptoms of decreased exercise tolerance and dyspnea are related to PD and he should continue to follow with his derrick engineer for evaluation and treatment of his a-fib [...] wnl at 0.69) and recommend re-establishing with [facility] Sleep Medicine for further evaluation [...] for now Neuropsychological testing today (none since 2019 and cannot locate results) Will check B12 and folate today for potential reversible contributors to cognitive decline [facility] Sleep Medicine referral for [facility] Continue to follow with cardiology (Dr. Schmidt) for A-fib RVR and ongoing evaluation/treatment of exertional fatigue, weakness, dyspnea Continue home PT,OT Follow-up in 3 months with fl Follow-up with [facility] and Stroke Neurology for neuropathy and ischemic strokes, respectively Follow-up as scheduled for ongoing botox for cervical dystonia Assessment & Plan (10/15/2024 8:52 PM ENERGY MANAGEMENT SPECIALIST): History of parkinson's disease since 2015. Increased weakness since hospitalization. Order home health PT Assessment & Plan (05/08/2024 1:11 PM CDT): ASSESSMENT - 68 y.o. man with Parkinson's disease and immune neuropathy, with PD present for 9 years that began in 2014 or earlier [...] present for 8 years that began in 2014 or earlier [...] dose. We should also then discuss with derrick engineer or PCP about taking down antihypertensives. Assessment & Plan (09/13/2022 7:04 PM ENERGY MANAGEMENT SPECIALIST): Continue home Sinemet Assessment & Plan (01/03/2022 2:35 PM CDT): ASSESSMENT - 66 y.o. man with Parkinson's disease and immune neuropathy, with PD present for 7 years that began in 2015 or earlier [...] present for 6 years that began in 2015 or earlier [...] if your balance worsens. This encounter's total ilrt-sj-nyft time was greater than 20 minutes. I [...] out Assessment & Plan (10/07/2021 3:55 PM ENERGY MANAGEMENT SPECIALIST): Patient with history of pre-diabetes since 2017 [...] 02/21/2017 Assessment & Plan (09/29/2021 1:02 PM ENERGY MANAGEMENT SPECIALIST): Continue to monitor BP. The BP is fine today, but the report yesterday warrants some concern Headache resolved Will continue current regimen Arthritis of foot 02/29/2016 Plantar fascial fibromatosis 02/29/2016 Synovitis of left foot 02/29/2016 Synovitis of right foot 02/29/2016 Plantar fasciitis of left foot 11/09/2015 Chronic migraine without aura 07/14/2015 Overview (12/15/2016): Chronic migraine without aura Assessment & Plan (10/24/2022 10:36 AM ENERGY MANAGEMENT SPECIALIST): Patient on the Topamax, discussed no red [...] issue. Assessment & Plan (09/13/2022 7:00 PM ENERGY MANAGEMENT SPECIALIST): No headache at this time. Home Topamax [...] 02/03/2015 Assessment & Plan (09/13/2022 7:02 PM ENERGY MANAGEMENT SPECIALIST): Pt is not on any BP meds at home, and his BP is at goal. Currently allowing for permissive HTN. Peripheral nerve disease 02/03/2015 Generalized osteoarthritis 01/24/2014 Overview (12/13/2016): GENERAL OSTEOARTHROSIS Venous thrombosis 01/24/2014 Overview (12/13/2016): VENOUS THROMBOSIS NOS Benign hypertension 01/24/2014 Overview (12/13/2016): BENIGN HYPERTENSION Assessment & Plan (10/01/2022 2:29 PM ENERGY MANAGEMENT SPECIALIST): Hoping therapy will help recovery Cholesterol is well controlled Triglycerides improving BP is controlled, if a bit on the soft side Continuing current regimen Assessment & Plan (03/28/2021 1:07 PM CDT): Blood pressure looks pretty good. Kidney function is acceptable. Blood Pressure Follow-up: Lifestyle modifications education provided on sodium reduction, increase physical activity and weight reduction. Dyssomnia 01/24/2014 Overview (12/13/2016): SLEEP DISTURBANCE NOS Multiple-type hyperlipidemia 01/24/2014 Overview (12/13/2016): MIXED HYPERLIPIDEMIA Assessment & Plan (03/28/2021 1:07 PM CDT): Continuing simvastatin 40 mg daily Gastroesophageal reflux disease 01/24/2014 Overview (12/13/2016): ESOPHAGEAL REFLUX Assessment & Plan (07/14/2021 11:11 PM CDT): Continue PPI Assessment & Plan (03/28/2021 1:09 PM CDT): May discontinue Pepcid. Will continue Protonix currently. Male erectile disorder 01/24/2014 Overview (12/13/2016): Erectile Dysfunction Chronic pain syndrome 01/24/2014 Overview (12/13/2016): CHRONIC PAIN SYNDROME Unspecified atrial fibrillation 04/21/2013 Overview (07/16/2023): Paroxysmal atrial fibrillation Assessment & Plan (09/13/2022 7:04 PM ENERGY MANAGEMENT SPECIALIST): H/o Afib, with bradycardia, s/p pacemaker Eliquis is currently held per neuro recx to prevent hemorrhagic conversion of stroke. Telemetry monitoring. Assessment & Plan (07/14/2021 11:11 PM CDT): Patient currently in AFib. Will continue sotalol. Deferring Coumadin resumption to Neurology. Assessment & Plan (03/28/2021 1:08 PM CDT): Rhythm controlled with sotalol Rate is acceptable today Continues on anticoagulation as well, warfarin Assessment & Plan (04/14/2020 11:15 AM CDT): Patient has had paroxysms but nothing persistent requiring additional attention or associated with compromising symptoms. He will continue with sotalol 80 mg b.i.d.. Knee pain 03/09/2011 Overview (07/16/2023): Dec 14, 2015 Entered By: KAYLEY HARTLEY [facility] Entered By: KAYLEY HARTLEY Comment: status post tkr left knee. right knee arthrsocopy. Notalgia 03/09/2011 Paresis 03/09/2011 Assessment & Plan (03/28/2021 1:09 PM CDT): Largely resolved Kidney stone on right side Resolved Problems Problem Noted Date Diagnosed Date Resolved Date Rash 08/05/2024 10/15/2024 Assessment & Plan (08/05/2024 9:49 AM ENERGY MANAGEMENT SPECIALIST): Questioning if reaction due to bupivacaine, though he seemed to tolerate lidocaine, iohexol, etc Epipen given Will extend steroid taper Continue PRN Benadryl Falling 07/29/2024 10/15/2024 Overview (07/29/2024): Dec 14, 2015 Entered By: KAYLEY HARTLEY Comment: recurrent falls /syncope Chronic pharyngitis 07/16/2023 10/15/19 Assessment & Plan (05/15/2024 3:35 PM CDT): Will call with results of Modified barium swallow Discussed taking all medications other than Metformin prior to Barium swallow study Falls 07/16/2023 10/15/2024 Overview (07/16/2023): Dec 14, 2015 Entered By: KAYLEY HARTLEY Comment: recurrent falls /syncope Obesity 07/16/2023 10/15/2024 Mass of lip 08/06/2021 10/15/2024 Bradycardia 07/26/2021 10/15/2024 Acute CVA (cerebrovascular accident) 07/14/2021 10/15/2024 [id number]|2025-01-21 11:40:00|2025-01-21 11:39:00|XMS_ITS|SIERRAG DABEVERLY|External Medical Summaries|[id number]|" Encounter Summary Created on: January 21, 2025 Bobo Banegas : 1955 Sex: Male Author Organization [facility] Address [address] [place] [address] Care Team Providers Care Delivery Room Supervisor Name Role Phone Tuan Bolden MD Unavailable [phone] Kayley Hartley MD Unavailable [phone] Veronica Swanson MD Unavailable [phone] Lakeisha Agustin MD Unavailable Jesús Mo DMD Unavailable Samuel Moura MD Unavailable [phone] Luh Costa MD Unavailable Carlos Espinal MD Primary Care Provider [phone] Tyra Flores MD PhD Unavailable [phone] Encounter Details Date Type Department Care Team (Late st Contact Info) Description 11/30/2024 Results Follow-Up [facility] [place] [id number] [place] [address] Tammi Leon, KNURLING MACHINE OPERATOR [address] [place] [address] [address] [place] [address] Social History Tobacco Use Types Packs/Day Years Used Date Smoking Tobacco: Never Passive Smoke Exposure: Never Smokeless Tobacco: Never Alcohol Use Standard Drinks/Week Comments No 0 (1 standard drink = 0.6 oz pur e alcohol) [facility] Utilities Answer Date Recorded In the past 12 months has e electric, gas, oil, or water company threatened to shut off services in your [...] often do you attend chur ch or amish services? Never 10/13/2024 Do you belong to any clubs o r organizations such as taoist groups, unions, fraternal or athletic groups, or [...] staff should administer the PHQ-9) 0 08/29/2024 [facility] [place] of Occupat ional Health - Occupational Stress [...] place to sleep or slept in a nursing home (including now)? No 10/31/2023 PHQ-9 Answer Date [...] any time in the past 12 m [facility], were you homeless or living in a nursing home (including now)? No 10/13/2024 Personal Safety Answer [...] on file Legal Sex Male 11:56 PM ENERGY MANAGEMENT SPECIALIST Gender Identity Male 08/09/2021 9:27 AM ENERGY MANAGEMENT SPECIALIST Sexual Orientation Not on file Occupation Industry Job Start Date Job End Date Not on file Not on file Not on file Not on file documented as of this encounter Plan of Treatment Not on file documented as of this encounter Visit Diagnoses Not on filedocumented in this encounter Additional Health Concerns Infection Onset Date Last Indicated Resolved Time COVID: Suspected 11/30/2024 11/30/2024 11/30/2024 2:38 PM CDT COVID: Suspected 11/30/2024 11/30/2024 11/30/2024 7:21 PM CDT documented as of this encounter Care Teams Delivery Room Supervisor Relationship Specialty Start Date End Date Carlos Espinal MD [address] [facility] [address] [place] [address] PCP - General Family Medicine 10/14/24 Tuan Bolden MD Consulting Physician Neurology 12/20/17 Kayley Hartley MD [address] [facility] [address] [facility] [address] [place] [address] Consulting Physician Internal Medicine 12/26/18 Veronica Swanson MD [address] [facility] [address] [facility] [address] [place] [address] Referring Physician Neurology 01/13/19 [place] [address] [facility] [address] [place] [address] Consulting Physician Cardiology 07/19/21 Jesús Mo DMD [address] [place] [address] Surgeon Oral Surgery 03/28/22 Samuel Moura MD [address] [place] [address] Surgeon Otolaryngology 03/28/22 Luh Costa MD [address] [place] [address] Consulting Physician Urology 09/21/22 Tyra Flores MD PhD [address] [facility] [address] [place] [address] Consulting Physician Neurology 11/18/24 documented as of this encounter "
--- OUTSIDE RECORDS SUMMARY | 2025-01-21 11:40 | XMS_ITS | CONTINUITY OF CARE DOCUMENT ---
Author Name rica mikipete Address Unknown Organization [facility] Address [address] [address] [place] [address] Phone [phone] Care Team Providers Care Conveyor Installer Name Role Phone Vamsi LEONARD, Lakeisha Unavailable DANA LEONARD, CÉSAR Unavailable [phone] DANA LEONARD, CÉSAR Unavailable PROBLEMS Condition Status Date Provider Notes S/P Dual chamb PCM - Biotronik ( MRI Safe) active Adrienne Navarro Atrial fib paroxysmal s/p LAAO device 10/30/23 active Jony Silveira MD Hyperlipidemia active Lakeisha Agustin MD HTN essential--echo ef nl, 11/2024 active Ryan Storm Prediabetes active Lakeisha Agustin MD Parkinson's disease active Lakeisha Agustin MD FAMILY HISTORY OF HEART DISEASE active Lakeisha Agustin MD BACK PAIN active Lakeisha Agustin MD Near Syncope active Lakeisha Agustin MD Hx of DVT and PE active Ryan Storm LUCI--on O2 active Lakeisha Agustin MD Abnormal EKG active Lakeisha Agustin MD GERD active Lakeisha Agustin MD CAD, 25% midRCA on cath 2018 active Lakeisha Agustin MD Mitral regurgitation, mild-moderate active Lakeisha Agustin MD Obesity active Lakeisha Agustin MD Bradycardia active Lakeisha Agustin MD Pacemaker: completed - Ryan Storm (Status post) CVA / TIA active Lakeisha Agustin MD ENCOUNTERS Date Type Provider Location Encounter Diag nosis - In-person encounter Office Visit Lakeisha Agustin MD [facility] HTN essential--echo ef nl, 11/2024 - In-person encounter Office Visit Lakeisha Agustin MD [facility] - In-person encounter Office Visit Jony Silveira MD [facility] Atrial fib paroxysma l s/p LAAO device 10/30/23 - In-person encounter Office Visit Jony Silveira MD [facility] - In-person encounter Office Visit Lakeisha Agustin MD [facility] Hx of DVT and PEPacemaker: - In-person encounter Office Visit Lakeisha Agustin MD [facility] LUCI--on O2CVA / TIA - In-person encounter Office Visit Lakeisha Agustin MD [facility] - In-person encounter Office Visit Lakeisha Agustin MD [facility] - In-person encounter Office Visit Lakeisha Agustin MD [facility] - In-person encounter Office Visit Jay Cardona MD [facility] - In-person encounter Office Visit Lakeisha Agustin MD [place] [facility] Bradycardia - In-person encounter Office Visit Lakeisha Agustin MD [facility] Office HTN essential--echo ef nl, 11/2024 - In-person encounter Office Visit Lakeisha Agutsin MD [facility] CAD, 25% midRCA on cath 2018Mitral regurgitation, mild-moderateObesity - In-person encounter Office Visit Lakeisha Agustin MD [facility] Atrial fib paroxysma l s/p LAAO device 10/30/23yperlipidemia HTN essential--echo ef nl, 11/2024PrediabetesPar kinson's diseaseFAMILY HISTORY OF HEART DISEASEBACK PAINNear SyncopeHx of DVT and PEOSA--on [id number] EKGGERD VITAL SIGNS Date Observation Value Provider blood pressure, diastolic 70 mm[Hg] Li nkLogic blood pressure, systolic 145 mm[Hg] Terri kLog Body Mass Index (Ratio) 32.71 kg/m2 Scottie Agustin MD pulse rate 72 /min Lenora berhanelisa holman oxygen saturation, oximetry 97 % Lenora Fishman blood pressure, diastolic 70 mm[Hg] Ti jaycob Fishman blood pressure, systolic 145 mm[Hg] Tif gibson Fishman blood pressure, cuff size regular Ti jaycob Fishman weight E&M 228 [lb_av] Lenora Villavicencio s height E&M 70 [in_i] [facility] Body Mass Index (Ratio) 33.46 kg/m2 Scottie Agustin MD blood pressure, cuff size regular As wolfgang Ayala blood pressure, diastolic 71 mm[Hg] As boyd Ayala blood pressure, systolic 118 mm[Hg] Alvin Ayala oxygen saturation, oximetry 94 % Heena Ayala pulse rate 60 /min Heena Ayala weight E&M 233.2 [lb_av] Heena Ayala Body Mass Index (Ratio) 34.58 kg/m2 Woody Silveira MD blood pressure, cuff size regular Ke lucy Heller blood pressure, diastolic 82 mm[Hg] Ke rrjuan Rosenbaumer blood pressure, systolic 122 mm[Hg] Ker ri Gruenenfelder oxygen saturation, oximetry 96 % Nellie Gruenenfelder respiratory rate E&M 12 /min Nellie G ruenenfelder pulse rate 60 /min Nellie Gruenenfe er weight E&M 241 [lb_av] Nellie Gruenenfe height E&M 70 [in_i] Nellie Gruenenfe Body Mass Index (Ratio) 35.15 kg/m2 Woody Silveira MD blood pressure, cuff size regular Ja rret blood pressure, diastolic 89 mm[Hg] Ja rret blood pressure, systolic 120 mm[Hg] Jar ret pulse rate 82 /min Davis y respiratory rate E&M 12 /min Davis oxygen saturation, oximetry 97 % Davis weight E&M 245 [lb_av] Davis y height E&M 70 [in_i] Davis y Body Mass Index (Ratio) 35.01 kg/m2 Scottie Agustin MD blood pressure, cuff size regular Ke rri Gruenenfeld blood pressure, diastolic 96 mm[Hg] Ke rri Gruenenfelder blood pressure, systolic 142 mm[Hg] Joseph ri Gruenenfelder oxygen saturation, oximetry 96 % Nellie Gruenenfelder respiratory rate E&M 12 /min Nellie G ruenenfelder pulse rate 48 /min Nellie Gruenenfe er weight E&M 244 [lb_av] Nellie Gruenenfe /28 height E&M 70 [in_i] Nellie [facility] Body Mass Index (Ratio) 34.60 kg/m2 Scottie Agustin MD blood pressure, cuff size regular Jigar Lujan blood pressure, diastolic 74 mm[Hg] tr Lujan blood pressure, systolic 111 mm[Hg] Luly Lujan oxygen saturation, oximetry 97 % Ana Lujan pulse rate 60 /min Ana Lujan respiratory rate E&M 20 /min Ana Lujan weight E&M 241.2 [lb_av] Ana Lujan height E&M 70 [in_i] Ana Lujan Body Mass Index (Ratio) 34.29 kg/m2 Scottie Agustin MD blood pressure, cuff size regular Alecia nettles David blood pressure, diastolic 86 mm[Hg] Alecia nettles David blood pressure, systolic 136 mm[Hg] Jesus bloom David respiratory rate E&M 20 /min Guillerminamariel Hernandez oxygen saturation, oximetry 96 % Guillermina Hernandez pulse rate 61 /min Guillermina Hernandez weight E&M 239 [lb_av] Guillermina Hernandez height E&M 70 [in_i] Guillermina Hernandez Body Mass Index (Ratio) 34.29 kg/m2 Scottie Agustin MD blood pressure, cuff size large Ka aj Boone blood pressure, diastolic 72 mm[Hg] Ka aj Boone blood pressure, systolic 101 mm[Hg] Karissa rice Boone oxygen saturation, oximetry 97 % Samantha Boone respiratory rate E&M 15 /min Samantha Boone pulse rate 60 /min Samantha Boone weight E&M 239 [lb_av] Samantha Boone height E&M 70 [in_i] Samantha Boone Body Mass Index (Ratio) 34.29 kg/m2 Scottie Agustin MD blood pressure, diastolic 70 mm[Hg] Ri christopher Storm blood pressure, systolic 130 mm[Hg] Myriam tea Gretchenmedzajuan weight E&M 239 [lb_av] Ryan medzajuan oxygen saturation, oximetry 95 % Ryan medzajuan pulse rate 59 /min [facility] Body Mass Index (Ratio) 34.17 kg/m2 Fidel Cardona MD blood pressure, cuff size large [facility] [place] blood pressure, diastolic 70 mm[Hg] Or chelita [place] blood pressure, systolic 118 mm[Hg] [facility] claire [place] oxygen saturation, oximetry 96 % Jo [place] respiratory rate E&M 18 /min Zulay bird [place] pulse rate 68 /min Jo harding weight E&M 238.2 [lb_av] Jo Whaley nd height E&M 70 [in_i] Jo harding Body Mass Index (Ratio) 34.29 kg/m2 Scottie Agustin MD blood pressure, diastolic 73 mm[Hg] Ca therine Teja blood pressure, systolic 115 mm[Hg] Cat herine [place] blood pressure, cuff size large Ca therine [place] oxygen saturation, oximetry 95 % Sheri Teja respiratory rate E&M 14 /min Catheri ne Teja pulse rate 55 /min Sheri Teja weight E&M 239 [lb_av] Sheri Teja height E&M 70 [in_i] Sheri Teja Body Mass Index (Ratio) 34.72 kg/m2 Scottie Agustin MD blood pressure, diastolic 72 mm[Hg] Ch astity Daily blood pressure, systolic 133 mm[Hg] Shelby stity Daily oxygen saturation, oximetry 95 % Chastity Daily pulse rate 65 /min Chastity Daily respiratory rate E&M 16 /min Chastit y Daily weight E&M 242 [lb_av] Chastity Daily height E&M 70 [in_i] [facility] Body Mass Index (Ratio) 34.15 kg/m2 Scottie Agustin MD blood pressure, diastolic 85 mm[Hg] Rh lanre Mayi blood pressure, systolic 139 mm[Hg] Rho ndsandra See oxygen saturation, oximetry 97 % Cyndie See pulse rate 71 /min Cyndie See blood pressure, resting Yes Jun Tyalor respiratory rate E&M 18 /min Cyndie See blood pressure, cuff size regular Eulogio velásquezkanchan See weight E&M 238 [lb_av] Cyndie See height E&M 70 [in_i] Cyndie See Body Mass Index (Ratio) 35.15 kg/m2 Scottie Agustin MD blood pressure, cuff size regular Kr isty [place] blood pressure, diastolic 80 mm[Hg] Kr isty [place] blood pressure, systolic 128 mm[Hg] Kri sty Annie blood pressure, resting No Eleazar ty Annie pulse rate 60 /min Oly [place] oxygen saturation, oximetry 98 % Oly Annie respiratory rate E&M 19 /min Oly [place] weight E&M 245 [lb_av] Oly Valencia height E&M 70 [in_i] Oly Valencia ALLERGIES Allergy Name Onset Date Reaction Criticality Status STEROIDS High Criticality active VICODIN High Criticality active SAVELLA extreme sweating Low Criticality act chet CYMBALTA extreme abdomina l pain vomiting High Criticality active HYDROCODONE W/ APAP vomiting vomiting High Crit icality active TRAMADOL heart racing Low Criticality active OXYCODONE vomiting vomiting High Criticality a ctive RESULTS Date Observation Value Provider Reference Range Interpretation Location Estimated Glomerular Filtration Rate (calc) 99 mL/min/{ 1.73_m2} [place] [address] aspartate aminotransferase (SGOT), serum 31 1/L [facility] 10-50 Normal [place] [address] alanine aminotransferase (SGPT), serum 16 1/L [facility] 7-55 Normal [place] [address] Alkaline phosphatase 70 [facility] 40-130 Normal C, [place] [address] albumin, serum 4.2 g/dL [facility] 3.5-5.0 Normal [place] [address] protein, total, serum 7.4 g/dL [facility] 6.5-8.5 Normal [place] [address] bilirubin, serum, total 0.6 mg/dL [facility] 0.1-1.2 Normal [place] [address] calcium, serum 9.6 mg/dL [facility] 8.5-10.3 Normal [place] [address] blood glucose, random 198 mg/dL [facility] 70-199 Normal C, [place] [address] creatine, serum 0.71 mg/dL [facility] 0.80-1.30 Low C, [place] [address] urea nitrogen, blood 13 mg/dL [facility] 6-25 Normal C, [place] [address] anion gap, serum 9 mmol/L [facility] 2-15 Normal C, [place] [address] carbon dioxide, venous blood 27 mmol/L [facility] 22-32 Normal C, [place] [address] chloride, serum 101 mmol/L [facility] 97-110 Normal C, [place] [address] potassium, serum 4.0 MMOL/L [facility] 3.3-4.9 Normal C, [place] [address] sodium, serum 137 mmol/L [facility] 135-145 Normal C, [place] [address] activated partial thromboplastin time (aPTT) 36 s [facility] 28-38 Normal C, [place] [address] international normalized ratio (INR) 1.36 [facility] 0.90-1.20 High C, [place] [address] prothrombin time (patient) 15.5 s [facility] 10.3-13.7 High , [place] [address] Absolute Basophils 0.0 K/CUMM [facility] 0.0-0.1 Normal , [place] [address] Absolute Monocytes 0.8 K/CUMM [facility] 0.2-0.8 Normal C, [place] [address] Absolute Lymphocytes 1.3 K/CUMM [facility] 0.8-3.3 Normal C, [address] [address] Absolute Neutrophils 5.1 K/CUMM [facility] 1.5-6.5 Normal C, [address] [address] nucleated red blood cells as percent of blood leukocytes 0.00 K/CUMM [facility] 0.00-0.01 Normal red blood cell distribution width, size density 47.2 fL [facility] 35.7-48.1 Normal mean corpuscular hemoglobin concentration, RBC 33.8 G/DL [facility] 32.3-35.7 Normal mean corpuscular hemoglobin, RBC 32.3 pg [facility] 27.1-33.3 Normal mean corpuscular volume, RBC 95.6 fL [facility] 81.3-96.4 Normal erythrocyte count, whole blood 4.73 M/CUMM [facility] 4.30-5.80 Normal mean platelet volume 9.5 fL [facility] 9.1-12.3 Normal platelet count 189 10*3/uL [facility] 150-400 Normal hematocrit, blood 45.2 % [facility] 38.9-50.3 Normal hemoglobin, blood 15.3 g/dL [facility] 13.0-17.5 Normal HISTORY OF MEDICATION USE Medication Status Instructions Dates Provider Indications Com ments diltiazem HCl (Cardizem CD) 180 mg capsule,extende d release 24hr active Take 1 capsule by mouth every night at bedtime Ryan Storm aspirin 81 mg tablet,delayed release (DR/EC) active TAKE ONE TABLET BY MOUTH DAILY Lakeisha Agustin MD donepezil 5 mg tablet active Ryan Storm clopidogrel 75 mg tablet active Jony Silveira MD sotalol 120 mg tablet active TAKE 1 TABLET BY MOUTH TWICE A DAY Lexie Menjivar atorvastatin 40 mg tablet active TAKE 1 TABLET BY MOUTH EVERY DAY Nellie Gruenenfelder sotalol 80 mg tablet completed TAKE 1 TABLET BY MOUTH EVERY 12 HOURS - Monica Mar cephalexin 250 mg capsule completed 1 capsule three times a day - Jay Cardona MD Eliquis 5 mg tablet completed Take 1 tablet by mouth twice a day - Jony Silveira MD famotidine 40 mg tablet active take 1 pill a day Nellie Heller metformin 500 mg tablet completed TAKE 1/2 TABLET BY MOUTH TWICE A DAY WITH MEALS - Nellie Heller TYLENOL CAPSULE active Take 1 tablet by mouth as needed Oly Valencia melatonin 10 mg capsule active Take 1 tablet by mouth once a day Oly Valencia PROBIOTIC active Take 1 tablet by mouth once a day Oly Vlaencia CALCIUM + D3 TABLET completed Take 1 tablet by mouth once a day - Oly Valencia CALCIUM + D TABLET completed Take 600 mg by mouth twice a day - Oly Valencia MAGNESIUM TABLET active Take 1 tablet by mouth once a day Oly Valencia potassium gluconate 595 mg (99 mg) tablet completed Take 1 tablet by mouth once a day - Ryan HERNANDEZ FLAXSEED OIL 1200 MG CAPS completed Take 1 tablet by mouth once a day - Oly Valencia One Daily For Men 50+ Advanced 400-600-120 mcg-mcg-mg tablet active Take 1 tablet by mouth once a day Oly Valencia warfarin 5 mg tablet completed - Oly Valencia venlafaxine 37.5 mg tablet active Take 1 tablet by mouth once a day Nellie Heller topiramate 50 mg tablet active Take 1 tablet by mouth twice a day Oly Valencia simvastatin 80 mg tablet completed Take 0.5 tablet by mouth once a day - Ryan Storm rizatriptan 10 mg tablet active Take 1 tablet by mouth once a day Oly Valencia pantoprazole [address] for susp in packet active Take 1 tablet by mouth twice a day Oly Valencia morphine 15 mg tablet extended release active Take 1 tablet by mouth as needed Oly Valencia metformin 1,000 mg tablet active Take 0.5 tablet by mouth twice a day Oly Valencia amitriptyline 50 mg tablet active Take 1 tablet by mouth twice a day Oly Valencia pregabalin 150 mg capsule active take 2 pills in the am and 1 pm at night Ryan Storm #180, 90 days supply, Prescribed by CÉSAR CORTEZ, Filled 08/17/2020 trazodone 100 mg tablet completed Take 1 tablet by mouth every night - Ryan Storm #90, 90 days supply, Prescribed by RODRIGO JOSEPH, Filled 09/10/2020 sotalol 120 mg tablet completed Take 1 tablet by mouth twice a day - Ryan Storm carbidopa-levod opa 25-100 mg tablet active Take 2 tablet by mouth three times a day Nellie Heller #675, 90 days supply, Prescribed by RODRIGO JOSEPH, Filled 10/03/2020 Vascepa 1 gram capsule completed Take 2 capsule by mouth twice a day - Oly Valencia #120, 30 days supply, Prescribed by CÉSAR CORTEZ, Filled 10/20/2020 SOCIAL HISTORY Date Observation Value Provider passive cigarette sm tiffany exposure no Ryan Storm smoking status Never smoker Ryan Storm passive cigarette sm tiffany exposure no Ryan Storm smoking status Never smoker Ryan Storm passive cigarette sm tiffany exposure no Jony Silveira MD smoking status Never smoker Jony Silveira MD social history reviewed E&M revi ewed - no changes required Ryan Storm social history E&M Marital Statu s: Sheyla verma: O ccupation: Smoking History: P melita has never smoked. Ryan Storm smoking status Never smoker Ana Lujan social history reviewed E&M revi ewed - no changes required Ryan Storm social history reviewed E&M revi ewed - no changes required Ryan Storm social history E&M Marital Statu s: Sheyla verma: O ccupation: Smoking History: P melita has never smoked. Ryan Storm social history reviewed E&M revi ewed - no changes required Ryan Storm passive cigarette sm tiffany exposure no Samantha oBone smoking status Never smoker Samantha Boone social history reviewed E&M revi ewed - no changes required Lakeisha Agustin MD passive cigarette sm tiffany exposure no Jay Cardona MD social history E&M Marital Statu s: Sheyla verma: O ccupation: Smoking History: Zuleika hua has never smoked. Jay Cardona MD pacemaker surgery, hx of Pacemaker Surger y,Hx of Jay Cardona MD smoking status Never smoker Jo Love and social history E&M S moking History: P melita has never smoked. Ryan Storm social history reviewed E&M revi ewed - no changes required Ryan Storm smoking status Never smoker Sheri holman smoking status Never smoker Raquel bird social history E&M Smoking Histo ry: P melita has never smoked. Ryan Storm social history reviewed E&M revi ewed - no changes required Ryan Storm number of grandchildren Lakeisha Agustin MD T kristin Agustin MD social history E&M S moking History: Zulekia hua has never smoked. Lakeisha Agustin MD social history reviewed E&M revi ewed - no changes required Lakeisha Agustin MD smoking status Never smoker Cyndie See social history E&M S moking History: Zuleika hua has never smoked. Lakeisha Agustin MD social history reviewed E&M revi ewed - no changes required Lakeisha Agustin MD smoking status Never smoker Oly Valencia FUNCTIONAL STATUS Date Observation Value Provider HRA, CV Assess/Plan, Angina (inactive) Management Plan continue current therapy Jony Silveira MD HRA, CV Assess/Plan, Angina (inactive) Management Plan continue current therapy Ryan Storm HRA, CV Assess/Plan, Angina (inactive) Management Plan continue current therapy Ryan Storm HRA, CV Assess/Plan, Angina (inactive) Management Plan continue current therapy Ryan Cormierzajuan HRA, CV Assess/Plan, Angina (inactive) Management Plan continue current therapy Ryan Storm HRA, CV Assess/Plan, Angina (inactive) Management Plan continue current therapy Jay Cardona MD HRA, CV Assess/Plan, Angina (inactive) Management Plan continue current therapy Ryan Cormierzajuan HRA, CV Assess/Plan, Angina (inactive) Management Plan continue current therapy Ryan Casazai INSURANCE PROVIDERS Payer name Policy type / Coverage type Byron red constitution [place] [id number] ADVANCE DIRECTIVES Name Date DISCUSSED - NO DECISION MADE DISCUSSED - NO DECISION MADE TREATMENT PLAN Date Name Performer [id number],S, Ryan Ahmedza i [id number],S, Ryan Ahmedza i [id number],S, Ryan Ahmedza i [id number],S, Ryan Ahmedza i [id number],S, Ryan Ahmedza i [id number],S, Ryan Ahmedza i [id number],S, Ryan Ahmedza i [id number],S, Ryan Ahmedza i [id number],S, Ryan Ahmedza i [id number],S, Ryan Ahmedza i [id number],S, Ryan Ahmedza i [id number],S, Ryan Ahmedza i [id number],S, Ryan Ahmedza i [id number],S, Ryan Ahmedza i [id number],S, Ryan Ahmedza i [id number],S, Ryan Ahmedza i [id number],S, Ryan Ahmedza i [id number],S, Ryan Ahmedza i [id number],S, Ryan Ahmedza i [id number],S, Ryan Ahmedza i [id number],S, Ryan Ahmedza i [id number],S, Ryan Ahmedza i [id number],S, Ryan Ahmedza i [id number],S, Ryan Cormierza i [id number],S, Ryan Cormierza i [id number],S, Jay echols MD [id number],S, Jay echols MD [id number],S, Jay echols MD [id number],S, Jay echols MD [id number],S, Ryan [place] i [id number],S, Ryan medza i [id number],S, Ryan medza i [id number],S, Ryan luluza juan [id number],S, Ryantea Carvalho i [id number],S, Lakeisha Agustin MD [id number],S, Lakeisha Agustin MD [id number],S, Lakeisha Agustin MD [id number],S, Lakeisha Agustin MD [id number],S, Lakeisha Agustin MD [id number],S, Lakeisha Agustin MD Cardiology Lakeisha Agustin MD Cardiology Lakeisha Agustin MD Cardiology Lakeisha Agustin MD Cardiology: B P today: 145/70 P rior BP: 118/71 (2024) His updated medication list for this problem includes: Diltiazem Hcl (cardizem Cd) 180 Mg Capsule,extended Release 24hr (Diltiazem hcl (cardizem cd)) ..... Take 1 capsule by mouth every night at bedtime Aspirin 81 Mg Tablet,delayed Release (dr/ec) (Aspirin) ..... Take one tablet by mouth daily Sotalol 120 Mg Tablet (Sotalol) ..... Take 1 tablet by mouth twice a day Lakeisha Agustin MD Cardiology:This visi t has been a part of the consistent, comprehensive, and ongoing management of the chronic medical condition(s) listed above for the patient. His updated medication list for this problem includes: Diltiazem Hcl (cardizem Cd) 180 Mg Capsule,extended Release 24hr (Diltiazem hcl (cardizem cd)) ..... Take 1 capsule by mouth every night at bedtime Aspirin 81 Mg Tablet,delayed Release (dr/ec) (Aspirin) ..... Take one tablet by mouth daily Sotalol 120 Mg Tablet (Sotalol) ..... Take 1 tablet by mouth twice a day Clopidogrel 75 Mg Tablet (Clopidogrel) Lakeisha Agustin MD Cardiology:This visi t has been a part of the consistent, comprehensive, and ongoing management of the chronic medical condition(s) listed above for the patient. His updated medication list for this problem includes: Clopidogrel 75 Mg Tablet (Clopidogrel) Sotalol 120 Mg Tablet (Sotalol) ..... Take 1 tablet by mouth twice a day Lakeisha Agustin MD Cardiology: H is updated medication list for this problem includes: Clopidogrel 75 Mg Tablet (Clopidogrel) Sotalol 120 Mg Tablet (Sotalol) ..... Take 1 tablet by mouth [facility] a [facility]: B P today: 118/71 P rior BP: 122/82 (12/04/2023) His updated medication list for this problem includes: Sotalol 120 Mg Tablet (Sotalol) ..... Take 1 tablet by mouth twice a day Orders: C omplete Echo ([id number]) [facility] Cardiology: O rders: C omplete Echo ([id number]) [facility] Cardiology: O rders: C omplete Echo ([id number]) [facility] Cardiology [facility] Cardiology: B P today: 122/82 P rior BP: 120/89 (08/21/2023) His updated medication list for this problem includes: Sotalol 120 Mg Tablet (Sotalol) ..... Take 1 tablet by mouth twice a day Jony Silveira MD Cardiology Jony Silveira MD Cardiology: s /p LAAO device implant 10/30/23 Jony Silveira MD Cardiology: s /p LAAO device implant 10/30/23 Jony Silveira MD Cardiology Jony Silveira MD Cardiology Jony Silveira MD Cardiology Jnoy Silveira MD Cardiology Ryan Ahmedzai Cardiology Ryan Ahmedzai Cardiology Ryan Ahmedzai Cardiology Ryan Ahmedzai Cardiology Ryan Ahmedzai Cardiology Ryan Ahmedzai Cardiology Ryan Ahmedzai Cardiology Ryan Ahmedzai Cardiology Ryan Ahmedzai Cardiology Ryan Ahmedzai Cardiology Ryan Ahmedzai Cardiology Ryan Ahmedzai Cardiology Ryan Ahmedzai Cardiology Ryan Ahmedzai Cardiology Ryan Ahmedzai Cardiology Ryan Ahmedzai Cardiology Ryan Ahmedzai Cardiology Ryan Ahmedzai Cardiology Ryan Ahmedzai Cardiology Ryan Ahmedzai Cardiology Ryan Ahmedzai Cardiology Ryan Ahmedzai Cardiology Ryan Ahmedzai Cardiology Ryan Ahmedzai Cardiology Ryan Ahmedzai Cardiology Jay Cardona MD Cardiology Jay Cardona MD Cardiology aJy Cardona MD Cardiology Jay Cardona MD Cardiology Ryan Ahmedzai Cardiology Ryan Ahmedzai Cardiology Ryan Ahmedzai Cardiology Ryan Ahmedzai Cardiology Ryan Ahmedzai Cardiology Lakeisha Agustin MD Cardiology Lakeisha Agustin MD Cardiology Lakeisha Agustin MD Cardiology Lakeisha Agustin MD Cardiology Lakeisha Agustin MD Cardiology Lakeisha Agustin MD Cardiology Lakeisha Agustin MD Cardiology Lakeisha Agustin MD Cardiology Lakeisha Agustin MD Cardiology Lakeisha Agustin MD Cardiology Lakeisha Agustin MD Cardiology Lakeisha Agustin MD Cardiology Lakeisha Agustin MD Cardiology Lakeisha Agustin MD Cardiology Lakeisha Agustin MD Cardiology Lakeisha Agustin MD Cardiology Lakeisha Agustin MD Cardiology Lakeisha Agustin MD Cardiology Lakeisha Agustin MD Date Name Complete Echo BING - [facility] Complete Echo X-Ray, Chest - Routi ne CXR- PA/Lat Pacemaker Dual Chamb er - [facility] Sleep Study Home Monitor - Telemetry (Mobile Cardiac) Complete Echo HISTORY OF PROCEDURES Procedure Date Procedure Name Provider Procedure Notes S tatus Complex e/m visit add on Lakeisha Agsutin MD completed EKG Lakeisha Agustin MD completed Complex e/m visit add on Lakeisha Agustin MD completed MEME Agustin MD completed MEME Agustin MD completed
--- OUTSIDE RECORDS SUMMARY | 2025-01-21 11:40 | XMS_ITS | Encounter Summary ---
Author Organization [facility] Healthcare Address [address] [place] [address] Care Team Providers Care Paper Feeder Name Role Phone Tuan Bolden MD Unavailable [phone] Kane Fitzgerald MD Unavailable [phone] Veronica Swanson MD Unavailable [phone] Lakeisha Agustin MD Unavailable Jesús Mo DMD Unavailable [phone] Samuel Moura MD Unavailable Luh Costa MD Unavailable Carlos Espinal MD Primary Care Provider [phone] Tyra Flores MD PhD Unavailable [phone] Encounter Details Date Type Department Care Team (Late st Contact Info) Description 12/01/2024 Results Follow-Up [facility] at [address] [address] Tammi Leon, PRORATION CLERK [address] [place] [address] [address] [place] [address] Social History Tobacco Use Types Packs/Day Years Used Date Smoking Tobacco: Never Passive Smoke Exposure: Never Smokeless Tobacco: Never Alcohol Use Standard Drinks/Week Comments No 0 (1 standard drink = 0.6 oz pur e alcohol) [facility] Utilities Answer Date Recorded In the past [...] 10/13/2024 How often do you attend chur or buddhist services? Never 10/13/2024 Do you belong to any clubs o r organizations such as sabianist groups, unions, fraternal or athletic groups, or [...] staff should administer the PHQ-9) 0 08/29/2024 [facility] - Occupational Stress Questionnaire Answer Date Recorded [...] money to buy more. Never true 10/13/19 Within the past 12 months, t he [...] place to sleep or slept in a skilled nursing (including now)? No 10/31/2023 PHQ-9 Answer Date [...] any time in the past 12 m [facility], were you homeless or living in a skilled nursing (including now)? 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 Gender Identity Male 08/09/2021 9:27 AM MEDICAL TRANSCRIPTION EDITOR Sexual Orientation Not on file Occupation Industry Job Start Date Job End Date Not on file Not on file Not on file Not on file documented as of this encounter Plan of Treatment Not on file documented as of this encounter Visit Diagnoses Not on filedocumented in this encounter Care Teams Paper Feeder Relationship Specialty Start Date End Date Carlos Espinal MD [address] [facility] [address] [place], [place] [id number] PCP - General Family Medicine 10/14/24 Tuan Bolden MD Consulting Physician Neurology 12/20/17 Kane Fitzgerald MD [address] [facility] [address] [place], [place] [id number] Consulting Physician Internal Medicine 12/26/18 Veronica Swanson MD [address] [facility] [address] [place], [place] [id number] Referring Physician Neurology 01/13/19 [place] [address] [facility] [address] [place] [address] Consulting Physician Cardiology 07/19/21 Jesús Mo, DMD [address] [place] [address] Surgeon Oral Surgery 03/28/22 Samuel Moura MD [address] [place] [address] Surgeon Otolaryngology 03/28/22 Luh Costa MD [address] [place] [address] Consulting Physician Urology 09/21/22 Tyra Flores MD PhD [address] [facility] [address] [place] [address] Consulting Physician Neurology 11/18/24 documented as of this encounter
[2025-01-22 17:14] LABS: Myeloperoxidase Ab <1.0 AI
== END 2025-01-21 11:37 | disposition home or self-care (01) ==
LOC: ANHGOSHLAB 11:37
PROVIDERS: PCP Family Medicine; Visit Provider Otolaryngology
DX: M31.30 Wegener's granulomatosis without renal involvement (principal)
CPT/HCPCS: 36415; 86036